=== PATIENT | female | born 1980 | race Two or more races ===

== ENCOUNTER 2022-09-20 14:34 | Outpatient (REF) | payer OTHER, SELFPAY ==
--- NOTE | ~2022-09-20 | XR_ITS ---
EXAMINATION: XR SHOULDER, LEFT CLINICAL INFORMATION: Left shoulder pain COMPARISON: None TECHNIQUE: AP external rotation, Grashey, scapular Y, and axillary views of the left shoulder. FINDINGS: The bones and soft tissues are normal. No fracture. Glenohumeral and acromioclavicular alignment is anatomic with normal joint space. No abnormal soft tissue calcifications. XR/XR shoulder LT min 2V IMPRESSION: Normal left shoulder.
== END 2022-09-20 14:35 | disposition home or self-care (01) ==
LOC: HO.XRAY 14:34
PROVIDERS: PCP Internal Medicine; Visit Provider Internal Medicine
DX: M25.512 Pain in left shoulder (principal)
CPT/HCPCS: 73030

== ENCOUNTER 2022-11-24 17:00 | Outpatient (RCR) | payer OTHER, SELFPAY ==
--- NOTE | 2022-10-28 13:26 | MHC.PT.EP ---
[facility] [place] [facility] [place] [facility] [place] Office [address] John Barboza [address] [phone] F: [phone] F: [phone] F: [phone] F: [phone] Physical Therapy Plan of Care Date of Evaluation: Date of Surgery: N/A Diagnosis: Pain in left shoulder Assessment: Pt is a pleasant 41yo F who presents to PT with L shoulder pain. Her pain radiates intermittently into L UE. She presents to PT with current impairments in pain, decreased L shoulder ROM, decreased cervical ROM, soft tissue restrictions, decreased strength, and impaired posture. She is limited functionally by bending, prolonged sitting, lifting, overhead ADLs, reaching behind back, and pulling up her pants. She is an excellent candidate for skilled PT in order to address current impairments to facilitate return to PLOF. She is recommended to be seen 2x/week for 4 weeks and will be reassessed at that time. Frequency and Duration: The patient will be seen 2x/week for 4 weeks Short Term Goals: Pt will be I with HEP to promote self management of symptoms Pt will have centralization of symptoms Range Ecologist Goals: Pt will tolerate prolonged sitting > 30 min with proper posture and minimal to no discomfort Pt will perform overhead ADLs without compensation with minimal to no discomfort Pt will demonstrate improvements in function as evidenced by statistically significant improvement in SPADI outcome measure Treatment Plan: Modalities to reduce pain, spasms and effusion. Manual therapy to restore motion and function. Therapeutic exercise to improve strength and flexibility. Neuromuscular re-education for posture and balance. Therapeutic activities to return to functional activities of daily living. Electronically signed by: Krystal Bullock, PT, DPT Please sign and return to therapist. Thank you for your referral.
--- NOTE | 2023-01-03 14:55 | MHC.PT.DC ---
[facility] [place] Office [place] Office [place] Office [address] John Barboza [address] [phone] F: [phone] F: [phone] F: [phone] F: [phone] Physical Therapy Discharge Report Diagnosis: Pain in left shoulder Date of Surgery: N/A Date of Evaluation: 10/27/22 Date of Discharge: 01/03/23 Treatments to Date: 3 Cancellations to Date: 4 No Shows to Date: Discharge Status: Visit Non-compliance Discharge Summary: Pt was seen for PT from 10/27/22-11/24/22. Her last attended appointment was 11/24/22. Pt is being D/C from skilled PT as she has had many cancellations and has not attended PT in > 30 days. Pt current level of function unknown at this time. Electronically signed by: Krystal Bullock, PT, DPT Please sign and return to therapist. Thank you for your referral.
== END 2023-01-03 14:56 | disposition home or self-care (01) ==
LOC: HO.PT 17:00
PROVIDERS: PCP Internal Medicine; Visit Provider Internal Medicine
DX: M25.512 Pain in left shoulder (principal)
CPT/HCPCS: 97110; 97140; 97162

== ENCOUNTER 2022-12-07 15:52 | Outpatient (REF) | payer OTHER, SELFPAY ==
--- NOTE | ~2022-12-07 | MM_ITS ---
EXAMINATION: MM SCREENING DIGITAL BREAST TOMOSYNTHESIS, BILATERAL CLINICAL INFORMATION: Screening. Asymptomatic. The lifetime risk of breast cancer based on the Tyrer-Cuzick Model is 10.4%. COMPARISON: Mammography: December 06, 2012 and November 28, 2012 TECHNIQUE: Digital breast tomosynthesis is performed in both the craniocaudal and mediolateral oblique views along with computer-aided detection (CAD). Synthesized 2D images are generated from the tomosynthesis. FINDINGS: The breasts are extremely dense, which lowers the sensitivity of mammography (ACR BI-RADS breast composition Category d). There are no significant masses, abnormal calcifications, or other abnormalities. MM/MM tomosynthesis screening BI IMPRESSION: No significant changes ASSESSMENT: BI-RADS 1: Negative RECOMMENDATION: Routine annual mammography screening. This patient's information was entered into a reminder system with a target due date for their next mammogram.
== END 2022-12-07 15:53 | disposition home or self-care (01) ==
LOC: HO.MAMMO 15:52
PROVIDERS: PCP Internal Medicine; Visit Provider Internal Medicine
DX: Z12.31 Encounter for screening mammogram for malignant neoplasm of breast (principal)
CPT/HCPCS: 77063; 77067

== ENCOUNTER 2024-01-02 09:47 | Outpatient (AMB) | payer OTHER, SELFPAY ==
[2024-01-02 09:53] VITALS: BP 110/70; PULSE 73; TEMP 36.3; O2SAT 98; BMI 30.7
--- NOTE | 2024-01-02 09:53 | MHC.OFFWIV ---
Intake Vital Signs 01/02/24 09:53 Height 5 ft 4 in Weight 179 lb BMI 30.7 BP 110/70 Blood Pressure Location Lt brachial Position Sitting Pulse 73 Pulse Source Pulse Oximeter Temp 97.4 F Temp Source Temporal Artery Scan Pulse Oximetry (%) 98 Oxygen Delivery Method Room Air Intake Visit Reasons: EST/ congestion trouble breathing (lobby) Intake Note: pt is here today for congestion trouble breathing started 1 week ago Patient Tobacco Use Status: Current everyday Tobacco user Allergies No Known Allergies Allergy (Verified 01/02/24 10:15) Medication List - Last Reconciled 01/02/24 by EDUARDO Moralez acetaminophen (Tylenol Extra Strength) 1,000 mg PO Q6H PRN hydroxyzine HCl 25 mg PO TID PRN ibuprofen 800 mg PO Q6H nicotine (Nicoderm CQ) 1 patch transdermal DAILY Do you need a note to return to daycare/school/sports/work: Yes HPI HPI Comments History of Present Illness Details Patient is a 43-year-old female in today for sick visit. Reports sore throat, headache, cough, chest tightness times 10 days. Patient states to people at work have COVID. His utilize pobe-ozc-asbjqoa medicine with little effect. Denies chest pain, shortness a breath, nausea, vomiting, diarrhea PFSH Family History Paternal Uncle Liver cancer Father Substance abuse Social History (Updated 09/20/22 @ 14:09 by Rosalva Garcia MD) Housing: Apartment Alcohol intake: current Patient Tobacco Use Status: Current everyday Tobacco user Tobacco use type: Cigarette Cigarettes Per Day: 10 Years Smoked: 4 a day e-Cigarette/Vaping Use: Never Used Second Hand Smoke Exposure: Yes service: No Current occupational status: employed Current occupational exposures/hazards: No Cognitive needs: No Hearing needs: No Vision needs: No Review of Systems Const All systems reviewed & are unremarkable except as noted in HPI and below Physical Exam Vital Signs: Last Vital Signs Temp 97.4 F 01/02/24 09:53 Pulse 73 01/02/24 09:53 BP 110/70 01/02/24 09:53 Pulse Ox 98 01/02/24 09:53 Oxygen Delivery Method Room Air 01/02/24 09:53 BMI result Body Mass Index 30.7 Const Other: Appearance: Alert.? Oriented X3.? No acute distress.? Head: Normocephalic, Eyes: Pupils equal, round and reactive to light.?Sclera white/ ENT: Pharynx erythema. Tonsils +2. Right TM intact and pearly reyna. Left TM erythema with effusion. Neck: Normal inspection.? Neck supple.? CVS: Normal heart rate and rhythm.? Pulses normal.? Respiratory: No respiratory distress.? Breath sounds normal.? Neuro: Oriented X 3.? No motor deficit.? No sensory deficit. CN 2-12 intact Office Procedures Nebulizer Treatment Nebulizer Treatment 92159-Efubscilv/MDI RX initial, or Nebulizer Subsequent Treatment Office Meds ipratropium 0.5 mg-albuterol 3 mg (2.5 mg base)/3 mL nebulization soln Performing Provider: EDUARDO Moralez Performing Location: [facility] Administered by: EDUARDO Moralez on 01/02/24 10:17 Dose Route Admin Location Dispensed Lot Number Expiration Date [facility] [employer] 3 mL inhalation 3 mL [id number] 09/14/25 80180-505-06 tenfarms Assessment & Plan Assessment & Plan (1) Left otitis media: Comment: Will give patient Augmentin. Will also give patient prednisone for chest tightness. Patient has been educated the side effects of these medications Code(s): H66.92 - Otitis media, unspecified, left ear Qualifiers: Otitis media type: unspecified Qualified Code(s): H66.92 - Otitis media, unspecified, left ear Plan: Take your medications as prescribed. If you were prescribed antibiotics today, it is important that you take your medication to their entirety, do not skip any doses, do not finish them early. Follow-up with your primary care provider this week. Return to the emergency department with new or worsening symptoms. Such as fevers, chills, chest pain, shortness of breath, nausea, vomiting, dizziness, headache, vision changes, lethargy In case of emergency call 911 Plan Follow up with PCP. Orders: Orders SARS-CoV2/FLU/RSV Today J06.9 - Acute upper respiratory infection, unspecified AMB Nebulizer Treatment Today R07.89 - Other chest pain Medications: New amoxicillin-pot clavulanate 875-125 mg 1 tab PO Q12H 14 tabs 0RF prednisone 20 mg PO BID 10 tabs 0RF Coding Level of Care Code Est Pt Level 3 (41723) Diagnoses Left otitis media, unspecified otitis media type H66.92 Otitis media type: unspecified CPT Codes Nebulizer Treatment - Nebulizer Treatment, initial or subsequent: [id number]-Pbtdahpth/MDI RX initial, or Nebulizer Subsequent Treatment ([id number]) Time Spent (min) 28
== END 2024-01-02 10:43 | disposition home or self-care (01) ==
PROVIDERS: PCP Internal Medicine; Visit Provider Nurse Practitioner Primary Care
DX: H66.92 Otitis media, unspecified, left ear (principal); R07.89 Other chest pain
CPT/HCPCS: 94640; 99213; J7620

== ENCOUNTER 2024-01-02 13:21 | Outpatient (REF) | payer OTHER, SELFPAY ==
[2024-01-02 14:25] LABS: Influenza A PCR NEGATIVE (Negative); Influenza B PCR NEGATIVE (Negative); Resp Syncy Virus RNA Qual PCR NEGATIVE (Negative); SARS COV2 PCR INHOUSE NEGATIVE (Negative)
== END 2024-01-02 13:22 | disposition home or self-care (01) ==
LOC: HO.LNP 13:21
PROVIDERS: Visit Provider Nurse Practitioner Primary Care
DX: J06.9 Acute upper respiratory infection, unspecified (principal)
CPT/HCPCS: 0241U

== ENCOUNTER 2024-01-13 09:21 | Outpatient (REF) | payer OTHER, SELFPAY ==
[2024-01-13 11:29] LABS: MANUAL DIFF FLAG NO
[2024-01-13 11:50] LABS: Basophils Absolute Auto 0.1 X10*3/uL (0.0-0.2); Basophils Percent Auto 0.6 % (0-2); Eosinophils Absolute Auto 0.1 X10*3/uL (0.0-0.4); Eosinophils Percent Auto 0.8 % (0-4); Hematocrit 40.8 % (37.0-47.0); Hemoglobin 13.5 g/dl (12.0-16.0); Imm Gran Abs Auto 0.03 X10*3/uL (0.00-0.03); Imm Gran Pct Auto 0.3 % (0.0-0.4); Lymphocytes Absolute Auto 3.8 X10*3/uL (1.2-4.9); Lymphocytes Percent Auto 36.6 % (20-40); Mean Corpuscular HGB Conc 33.1 g/dl (31.0-35.0); Mean Corpuscular Hemoglobin 31.7 pg (27.0-33.0); Mean Corpuscular Volume 95.8 fL (80.0-98.0); Mean Platelet Volume 11.1 fL (9.4-12.3); Monocytes Percent Auto 9.2 % (2-11); Neutrophils Absolute Auto 5.4 x10*3/uL (2.0-8.3); Neutrophils Percent Auto 52.5 % (45-73); Platelet Count 320 X10*3/uL (160-400); Red Blood Count 4.26 X10*6/uL (4.20-5.50); Red Cell Distribution Width 13.6 % (11.0-16.0); White Blood Count 10.3 X10*3/uL (4.8-10.8)
[2024-01-13 12:35] LABS: Alanine Aminotransferase 12 U/L (0-31); Alkaline Phosphatase 54 U/L (39-117); Anion Gap 14 (12-20); Aspartate Amino Transferase 12 U/L (5-31); Bilirubin Total 0.9 mg/dL (0.0-1.0); Blood Urea Nitrogen 16 mg/dL (9-16); Calcium 9.3 mg/dL (8.4-10.2); Carbon Dioxide 26 mmol/L (22-29); Chloride 104 mmol/L (96-108); Cholesterol 200 mg/dL (<200); Estimated Glomerular Filt Rate > 60; Free T4 (Free Thyroxine) 0.99 ng/dL (0.71-1.85); Glucose Random 88 mg/dL (60-115); HDL Cholesterol 62 mg/dL (>40); LDL Cholesterol Calculated 124 mg/dL (<100); Potassium 3.1 mmol/L (3.3-5.1); Sodium 141 mmol/L (135-145); Thyroid Stimulating Hormone 0.97 uIU/mL (0.32-4.0); Total Protein 6.7 g/dL (6.5-8.0); Triglycerides 74 mg/dL (<150); Vitamin D 25-OH Total 20.8 ng/mL (>30)
[2024-01-13 12:45] LABS: Folate 5.8 ng/mL (> or = 4.0); Vitamin B12 302 pg/mL (200-900)
== END 2024-01-13 09:22 | disposition home or self-care (01) ==
LOC: HO.HMGCLDS 09:21
PROVIDERS: PCP Internal Medicine; Visit Provider Internal Medicine
DX: F41.1 Generalized anxiety disorder (principal); E78.00 Pure hypercholesterolemia, unspecified
CPT/HCPCS: 36415; 80053; 80061; 82306; 82607; 82746; 84439; 84443; 85025

== ENCOUNTER 2024-02-21 14:12 | Outpatient (AMB) | payer OTHER, SELFPAY ==
[2024-02-21 14:15] VITALS: BP 136/88; PULSE 70; O2SAT 99; BMI 30.2
--- NOTE | 2024-02-21 14:15 | A.OFFPC_ITS ---
Vital Signs 02/21/24 14:15 Height 5 ft 4 in Weight 176 lb BMI 30.2 BP 136/88 Blood Pressure Location Lt brachial Position Sitting Pulse 70 Pulse Source Pulse Oximeter Pulse Oximetry (%) 99 Oxygen Delivery Method Room Air Intake Visit Reasons: Follow Up Supervisor Dried Yeast: Not Required per policy Accompanied by: Self / Same As Patient Allergies No Known Allergies Allergy (Verified 02/21/24 14:16) Medication List - Last Reconciled 02/21/24 by Rosalva Garcia MD acetaminophen (Tylenol Extra Strength) 1,000 mg PO Q6H PRN hydroxyzine HCl 25 mg PO TID PRN ibuprofen 800 mg PO Q6H Tobacco use date assessed: 02/21/24 Dental Screening Dental Screen Date: 02/21/24 Did you have a dental visit in the last 12 months?: Yes Did you have a dental problem in the last 6 months where you did not have access to dental care?: No Was dental information given to patient?: Patient has dentist HPI Follow Up HPI Details 43-year-old obese female smoker with gen eralized anxiety disorder last seen in 10/03/2022 has been advised to get Pap smear and mammogram and blood work. Noted to have had blood work done in 09/02/2023 noted to have hypokalemia and low vitamin-D. going back to school and having difficulty with focus PFSH Family History (Updated 02/21/24 @ 14:30 by Rosalva Garcia MD) Paternal Uncle Liver cancer Father Substance abuse Maternal Uncle Myocardial infarct Social History (Updated 02/21/24 @ 14:32 by Rosalva Garcia MD) Housing: Apartment Alcohol intake: current Comment: 2 days weekend 6 beers Patient Tobacco Use Status: Current everyday Tobacco user Tobacco use type: Cigarette Cigarettes Per Day: 5 Years Smoked: e-Cigarette/Vaping Use: Never Used Second Hand Smoke Exposure: Yes service: No Current occupational status: employed Current occupational exposures/hazards: No Cognitive needs: No Hearing needs: No Vision needs: No Questionnaire PHQ-9 Over the last 2 weeks, how often have you been bothered by any of the following problems? 1. Little interest or pleasure in doing things: not at all 2. Feeling down, depressed, or hopeless: not at all 3. Trouble falling or staying asleep, or sleeping too much: not at all 4. Feeling tired or having little energy: not at all 5. Poor appetite or overeating: not at all 6. Feeling bad about yourself - or that you are a failure or have let yourself or your family down: not at all 7. Trouble concentrating on things, such as reading the newspaper or watching television: not at all 8. Moving or speaking so slowly that other people could have noticed. Or the opposite - being so fidgety or restless that you have been moving around a lot more than usual: not at all 9. Thoughts that you would be better off or of hurting yourself in some way: not at all Total score: 0 Depression Screening Interpretation: Negative Depression Screening Done: Yes Source: Developed by Drs. Fransisco Rich, Tiny Delacruz, Chung Dykes and colleagues, with an educational chasity from [employer]. Thrive Questionnaire Date Thrive assessed: 02/21/24 I am a: Patient What is your living situation today?: I have a steady place to live Within the past 12 months, did the food you bought not last and you didn't have the money to get more?: Never true Within the past 12 months, did you worry whether your food would run out before you got money to buy more?: Never true Do you have trouble paying for medicines?: No Do you have trouble getting transportation to medical appointments?: No Do you have trouble paying your heating and electricity bill?: No Do you have trouble taking care of your child, family member or friend?: No Do you have trouble with day-to-day activities such as bathing, preparing meals, shopping, managing finances, etc.?: No Are you currently unemployed and looking for a job?: No Are you interested in more education?: No Please select the resources that you would like help with: None THRIVE Score: 0 AUDIT C Alcohol Use Questionnaire (AUDIT-C) 1. How often do you have a drink containing alcohol?: 2-4 times a month 2. How many drinks containing alcohol do you have on a typical day when you are drinking?: 5 or 6 3. How often do you have six or more drinks on one occasion?: Never Total Score: 4 Score Reviewed/Action Taken: Yes (reviewed and discussed ) GIL-7 AMB Questionnaire GIL-7 Date GIL - 7 assessed: 02/21/24 Feeling nervous, anxious, or on edge: 2 = More than half the days Not being able to stop or control worryin = Several days Worrying too much about different things: 2 = More than half the days Trouble relaxin = More than half the days Being so restless that it is hard to sit still: 2 = More than half the days Becoming easily annoyed or irritable: 0 = Not at all Feeling afraid as if something awful might happen: 0 = Not at all Total GIL-7 score (0-4 normal; 5-9 mild; 10-14 moderate; 15-21 severe): 9 Source: Developed by Drs. Fransisco Rich, Tiny Delacruz, Chung Dykes and colleagues, with an educational chasity from [employer]. Physical exam (Primary Care) Vital Signs: Last Vital Signs Pulse 70 02/21/24 14:15 BP 136/88 02/21/24 14:15 Pulse Ox 99 02/21/24 14:15 Oxygen Delivery Method Room Air 02/21/24 14:15 BMI result Body Mass Index 30.2 Tobacco/Smoking Status: Tobacco use Status Tobacco use date assessed 02/21/24 02/21/24 14:17 Patient Tobacco Use Status Current everyday Tobacco 02/21/24 14:17 Tobacco use type Cigarette 02/21/24 14:17 e-Cigarette/Vaping Use Never Used 02/21/24 14:17 PHQ-9: PHQ-9 Score PHQ-9: Total score 0 02/21/24 14:17 Depression Screening Interpretation: Negative Thrive Assessment: Date of Thrive Assessment Date Thrive assessed 02/21/24 02/21/24 14:17 Const General: alert; No acute distress Eyes Conjunctivae: conjunctivae normal Resp Auscultation: clear to auscultation bilaterally Cardio Rate: regular rate Rhythm: regular rhythm GI Inspection: Yes normal to inspection Extrem General: Yes normal to inspection and No edema Assessment and Plan Assessment & Plan (1) Breast cancer screening by mammogram: Code(s): Z12.31 - Encounter for screening mammogram for malignant neoplasm of breast Plan: Reminded patient about mammogram (2) Nicotine dependence: Code(s): F17.200 - Nicotine dependence, unspecified, uncomplicated Qualifiers: Nicotine product type: cigarettes Substance use status: uncomplicated Qualified Code(s): F17.210 - Nicotine dependence, cigarettes, uncomplicated Plan: Patient is strongly advised to stop smoking! (3) Generalized anxiety disorder: Comment: Declined referral for counseling Code(s): F41.1 - Generalized anxiety disorder Plan: Presently on hydroxyzine (4) Hypokalemia: Code(s): E87.6 - Hypokalemia Plan: Discussed about replacement potassium (5) Vitamin D deficiency: Code(s): E55.9 - Vitamin D deficiency, unspecified Plan: Discussion about vitamin-D 8451-6249 units once a day (6) Tobacco abuse: Code(s): Z72.0 - Tobacco use Plan: Patient is ready stop and would like the patches (7) Cough: Code(s): R05.9 - Cough, unspecified Plan: Most likely from the smoking but we will work this up allergy medication sent in chest x-ray requested pulmonary function test requested (8) Inattention: Code(s): R41.840 - Attention and concentration deficit Plan: referral for counselling and testing Orders: Orders XR chest 2V Today R05.9 - Cough, unspecified PFT pulmonary function test Today R05.9 - Cough, unspecified Comprehensive Met. Panel Today E87.6 - Hypokalemia Referrals Psychiatry Outpatient Consultation Service R41.840 - Attention and concentration deficit Medications: New nicotine 1 patch transdermal DAILY 28 ea 0RF Z72.0 - Tobacco use nicotine 1 patch transdermal Q24H 28 ea 1RF Z72.0 - Tobacco use nicotine (polacrilex) 2 mg buccal Q8H PRN 108 ea 0RF nicotine cravings Z72.0 - Tobacco use fexofenadine (Senait Allergy) 180 mg PO DAILY 30 tabs 1RF R05.9 - Cough, unspecified Coding Level of Care Code Est Pt Level 4 (95466) Diagnoses Breast cancer screening by mammogram Z12.31 Cigarette nicotine dependence without complication F17.210 Nicotine product type: cigarettes Substance use status: uncomplicated Generalized anxiety disorder F41.1 Hypokalemia E87.6 Vitamin D deficiency E55.9 Tobacco abuse Z72.0 Cough R05.9 Inattention R41.840 Additional Codes PHQ-9 - 72597 - PHQ-9 Billing: ([id number])
== END 2024-02-21 14:48 | disposition home or self-care (01) ==
PROVIDERS: PCP Internal Medicine; Visit Provider Internal Medicine
DX: E87.6 Hypokalemia (principal); Z12.31 Encounter for screening mammogram for malignant neoplasm of breast; F17.210 Nicotine dependence, cigarettes, uncomplicated; F41.1 Generalized anxiety disorder; E55.9 Vitamin D deficiency, unspecified; Z72.0 Tobacco use; R05.9 Cough, unspecified; R41.840 Attention and concentration deficit
CPT/HCPCS: 99214

== ENCOUNTER 2024-03-04 15:53 | Outpatient (AMB) | payer SELFPAY ==
--- NOTE | 2024-03-04 16:11 | A.OFFPSYCH_ITS ---
Intake Intake Visit Reasons: consultation Electrophysiology Technician Required: No Allergies No Known Allergies Allergy (Verified 02/21/24 14:16) Medication List - Last Reconciled 03/04/24 by Jazzy Patel APRN fexofenadine (Senait Allergy) 180 mg PO DAILY hydroxyzine HCl 25 mg PO TID PRN nicotine 1 patch transdermal DAILY nicotine 1 patch transdermal Q24H nicotine (polacrilex) 2 mg buccal Q8H PRN HPI- Psychiatric Chief Complaint: consultation HPI Narrative: pt here for evaluation of possible ADHD; she presents with sadness and mild depression as well as anxiety; she reports she has never really gotten over her father's ; several of her uncles have recently and this has made her grief from losing her father in 2003 feel more acute; 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 she says she would never have graduated from if her sister didn't help her. No SI no HI. Patient endorses trouble sitting still, feeling fidgety frequently distracted has trouble getting things organized. She often delays getting started when tasks require lot of thought she has trouble keeping attention when doing boring or repetitive work. She has difficulty concentrating on what other people say she has easy distracted by external noise or activity. She often has trouble sitting still she feels driven by a motor and is compelled to get up and do things around the house or while at work she describes herself as talking constantly her sister has told her that she is too loud makes too much noise and talks too much. She will often interrupt others. She has difficulty settling down at night and has trouble with sleep initiation she also says that she can speak impulsively at times. Past Psychiatric History: no IPLOC Subjective Subjective Subjective Medication Compliance: Yes Side effects from medications: No Review of Systems Medical Review of Systems: unchanged Mental Status Exam Mental Status Exam Patient Appearance: Well Grooomed and Appropriate Patient Orientation: Person, Place, Time and Situation Level of Consciousness: Awake Patient Behavior: Appropriate, Restless and Distractible Mood Description: Anxious and Sad Affect Description: Anxious and Sad Ability to Follow Directions: Good Speech Pattern: Clear and Coherent Memory Description: Intact Hallucinations: None Delusions: Not Present Thought Process: Intact Thought Content: positive for Intact Judgement: Good Assessment and Plan Assessment & Plan (1) ADHD (attention deficit hyperactivity disorder), combined type: Status: Acute Code(s): F90.2 - Attention-deficit hyperactivity disorder, combined type (2) Dysthymia: Status: Acute Code(s): F34.1 - Dysthymic disorder (3) Anxiety: Status: Acute Code(s): F41.9 - Anxiety disorder, unspecified Plan trial of wellbutrin SR 100mg daily x 10 days then increase to one in am and one at lunch. return in 3 weeks Medications: New bupropion HCl SR (Wellbutrin SR) 100 mg orally take one tablet every morning for ten days then take one in morning and one at lunch time daily; 60 tabs 0RF Counseling and coordination of Care Pt. Self Management counseling: Mod caffeine/ETOH intake, Sleep hygiene, Behavior activation and General coping skills Medication management counseling: Effectiveness, Side effects, Dosing range, Duration, Drug interaction and Adherence Diagnosis and Prognosis Counseling: Accuracy of diagnosis, Prognosis over time, Impact of diagnosis on life functions, Impact of family relationship, Problematic behaviors secondary to diagnosis and Adequacy of current interventions Details: I spent 60 minutes reviewing the record, seeing the patient and documenting in the medical record. Counseling provided to the patient/caregiver as outlined below. Addressed patient/caregiver concerns regarding current medication regime including effective adherence. Addressed patient/caregiver concerns regarding diagnosis and prognosis including accuracy of diagnosis, prognosis over time, impact of diagnosis. Addressed patient/caregiver concerns regarding impact of recent stressors. [facility] Family History (Updated 02/21/24 @ 14:30 by Rosalva Garcia MD) Paternal Uncle Liver cancer Father Substance abuse Maternal Uncle Myocardial infarct Social History (Updated 02/21/24 @ 14:32 by Rosalva Garcia MD) Housing: Apartment Alcohol intake: current Comment: 2 days weekend 6 beers Patient Tobacco Use Status: Current everyday Tobacco user Tobacco use type: Cigarette Cigarettes Per Day: 5 Years Smoked: e-Cigarette/Vaping Use: Never Used Second Hand Smoke Exposure: Yes service: No Current occupational status: employed Current occupational exposures/hazards: No Cognitive needs: No Hearing needs: No Vision needs: No Social History: lives alone with 17 yo son Substance History: none Trauma History: none Coding Level of Care Code Psych Diag Eval w/Med (25743) Diagnoses ADHD (attention deficit hyperactivity disorder), combined type F90.2 Dysthymia F34.1 Anxiety F41.9
== END 2024-03-04 16:48 | disposition home or self-care (01) ==
LOC: HO.HOP 15:53
PROVIDERS: PCP Internal Medicine; Visit Provider Clinical Nurse Specialist Psychiatric/Mental Health
DX: F90.2 Attention-deficit hyperactivity disorder, combined type (principal); F34.1 Dysthymic disorder; F41.9 Anxiety disorder, unspecified
CPT/HCPCS: 90792

== ENCOUNTER → 2024-03-04 15:53 | Outpatient (BNVA) | payer SELFPAY | PROVIDERS: PCP Internal Medicine; Visit Provider Clinical Nurse Specialist Psychiatric/Mental Health | DX: F90.2 Attention-deficit hyperactivity disorder, combined type (principal); F34.1 Dysthymic disorder; F41.9 Anxiety disorder, unspecified | CPT/HCPCS: 90792 ==

== ENCOUNTER 2024-03-15 15:59 | Outpatient (AMB) | payer OTHER, SELFPAY ==
--- NOTE | 2024-03-15 16:03 | A.OFFPSYCH_ITS ---
Intake Intake Visit Reasons: f/u consultation Allergies No Known Allergies Allergy (Verified 02/21/24 14:16) Medication List - Last Reconciled 03/15/24 by Jazzy Patel APRN fexofenadine (Senait Allergy) 180 mg PO DAILY hydroxyzine HCl 25 mg PO TID PRN nicotine 1 patch transdermal DAILY nicotine 1 patch transdermal Q24H nicotine (polacrilex) 2 mg buccal Q8H PRN HPI- Psychiatric Chief Complaint: f/u consultation HPI Narrative: pt reports restlessness and stomach ache from wellbutrin; she describes akathesia from it. she stopped it and it went away; we discussed options for the ADHD; no other changes. Past Psychiatric History: no IPLOC Subjective Subjective Subjective Medication Compliance: Yes Side effects from medications: Yes Review of Systems Medical Review of Systems: unchanged Mental Status Exam Mental Status Exam Patient Appearance: Well Grooomed and Appropriate Patient Orientation: Person, Place, Time and Situation Level of Consciousness: Awake Patient Behavior: Appropriate and Cooperative Mood Description: Appropriate and Anxious Affect Description: Appropriate and Anxious Patient Cognition Impaired: No Ability to Follow Directions: Good Speech Pattern: Clear, Appropriate and Coherent Memory Description: Intact Hallucinations: None Delusions: Not Present Thought Process: Goal Oriented Thought Content: positive for Intact and positive for Goal Oriented Judgement: Good Assessment and Plan Assessment & Plan (1) ADHD (attention deficit hyperactivity disorder), combined type: Status: Acute Code(s): F90.2 - Attention-deficit hyperactivity disorder, combined type Plan trial of adderall IR 10mg bid; will switch to ER if tolerates advised re; decreased appetite and making sure she eats on regular schedule stay hydrated return in 3 weeks Medications: New dextroamphetamine-amphetamine 10 mg (Adderall) administer doses at least 4 hours apart; Partial Fill upon patient request. 10 mg PO BID 60 tabs 0RF Counseling and coordination of Care Pt. Self Management counseling: Maintenance-social rhythm, Mod caffeine/ETOH int krys, Nutrition education and improvement and Sleep hygiene Medication management counseling: Effectiveness, Side effects, Dosing range, Duration, Drug interaction and Adherence Diagnosis and Prognosis Counseling: Accuracy of diagnosis, Prognosis over time, Impact of diagnosis on life functions and Adequacy of current interventions Details: I spent 25 minutes reviewing the record, seeing the patient and documenting in the medical record. Counseling provided to the patient/caregiver as outlined below. Addressed patient/caregiver concerns regarding current medication regime including effective adherence. Addressed patient/caregiver concerns regarding diagnosis and prognosis including accuracy of diagnosis, prognosis over time, impact of diagnosis. Addressed patient/caregiver concerns regarding impact of recent stressors. PFSH Family History (Updated 02/21/24 @ 14:30 by Rosalva Garcia MD) Paternal Uncle Liver cancer Father Substance abuse Maternal Uncle Myocardial infarct Social History (Updated 02/21/24 @ 14:32 by Rosalva Garcia MD) Housing: Apartment Alcohol intake: current Comment: 2 days weekend 6 beers Patient Tobacco Use Status: Current everyday Tobacco user Tobacco use type: Cigarette Cigarettes Per Day: 5 Years Smoked: e-Cigarette/Vaping Use: Never Used Second Hand Smoke Exposure: Yes service: No Current occupational status: employed Current occupational exposures/hazards: No Cognitive needs: No Hearing needs: No Vision needs: No Social History: lives alone with 17 yo son Substance History: none Trauma History: none Coding Level of Care Code Est Pt Level 4 (30073) Diagnoses ADHD (attention deficit hyperactivity disorder), combined type F90.2
== END 2024-03-15 17:55 | disposition home or self-care (01) ==
LOC: HO.HOP 15:59
PROVIDERS: PCP Internal Medicine; Visit Provider Clinical Nurse Specialist Psychiatric/Mental Health
DX: F90.2 Attention-deficit hyperactivity disorder, combined type (principal)
CPT/HCPCS: 99214

== ENCOUNTER → 2024-03-15 15:59 | Outpatient (BNVA) | payer SELFPAY | PROVIDERS: PCP Internal Medicine; Visit Provider Clinical Nurse Specialist Psychiatric/Mental Health | DX: F90.2 Attention-deficit hyperactivity disorder, combined type (principal) | CPT/HCPCS: 99212 ==

== ENCOUNTER 2024-05-03 16:03 | Outpatient (AMB) | payer OTHER, SELFPAY ==
--- NOTE | 2024-05-03 16:08 | A.OFFPSYCH_ITS ---
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 Allergies No Known Allergies Allergy (Verified 02/21/24 14:16) Medication List - Last Reconciled 05/03/24 by Jazzy Patel APRN dextroamphetamine-amphetamine 10 mg (Adderall) 10 mg PO BID fexofenadine (Senait Allergy) 180 mg PO DAILY hydroxyzine HCl 25 mg PO TID PRN nicotine 1 patch transdermal DAILY nicotine 1 patch transdermal Q24H nicotine (polacrilex) 2 mg buccal Q8H PRN HPI- Psychiatric Chief Complaint: f/u consultation HPI Narrative: pt reports improved ADHD sympotms; better focus, better attention, making fewwer mistakes, able to saty on task; functioning better especially at work; no side effects; eating well and sleeping well; she reports her mood is better but still sometimes feels low energy and low motivation. feels bad about herslef and like a failure sometimes. she worries every day; she feelt tense and anxious but she says no more than before the adderall. PHQ9 was 16 upon admission and is now 12. GAD7 was 16 upon admission and now is 11. She also reports that the second dose of adderall wears off around 4 pm and its hard to finish her day and then get things done at homesuch as cooking and helping her son. We discussed adding 5 mg of adderall IR at 4pm daily and also trial of zoloft 25mg at dinner time for mood and anxiety. she is agreeable. Past Psychiatric History: no IPLOC Subjective Subjective Subjective Medication Compliance: Yes Side effects from medications: No Review of Systems Medical Review of Systems: unchanged Mental Status Exam Mental Status Exam Patient Appearance: Well Grooomed and Appropriate Patient Orientation: Person, Place, Time and Situation Level of Consciousness: Awake and Appropriate Patient Behavior: Appropriate and Cooperative Mood Description: Flat and Sad Affect Description: Flat Patient Cognition Impaired: No Ability to Follow Directions: Good Speech Pattern: Clear Memory Description: Intact Hallucinations: None Delusions: Not Present Thought Process: Intact and Goal Oriented Thought Content: positive for Intact and positive for Goal Oriented Judgement: Good Assessment and Plan Assessment & Plan (1) Anxiety: Status: Acute Code(s): F41.9 - Anxiety disorder, unspecified (2) Dysthymia: Status: Acute Code(s): F34.1 - Dysthymic disorder (3) ADHD (attention deficit hyperactivity disorder), combined type: Status: Acute Code(s): F90.2 - Attention-deficit hyperactivity disorder, combined type Plan add zoloft 25 mg daily at 5pm continue adderall 10mg bid and start 5mg at 4pm there is a manufacturing shortage of adderall XR currently so once shortage end can consider changing to long acting adderall. Medications: New sertraline (Zoloft) 25 mg PO DAILY 30 tabs 2RF dextroamphetamine-amphetamine 5 mg (Adderall) 5 mg orally take daily 4 pm; Partial Fill upon patient request. 30 tabs 0RF sertraline (Zoloft) 25 mg PO DAILY 30 tabs 2RF dextroamphetamine-amphetamine 5 mg (Adderall) 5 mg orally take daily 4 pm; Partial Fill upon patient request. 30 tabs 0RF dextroamphetamine-amphetamine 5 mg (Adderall) 5 mg orally take daily 4 pm; Partial Fill upon patient request. 30 tabs 0RF sertraline (Zoloft) 25 mg PO DAILY 30 tabs 2RF Refilled dextroamphetamine-amphetamine 10 mg (Adderall) administer doses at least 4 hours apart; Partial Fill upon patient request. 10 mg PO BID 60 tabs 0RF dextroamphetamine-amphetamine 10 mg (Adderall) administer doses at least 4 hours apart; Partial Fill upon patient request. 10 mg PO BID 60 tabs 0RF dextroamphetamine-amphetamine 10 mg (Adderall) administer doses at least 4 hours apart; Partial Fill upon patient request. 10 mg PO BID 60 tabs 0RF Counseling and coordination of Care Pt. Self Management counseling: Mod caffeine/ETOH intake, Nutrition education and improvement, Sleep hygiene and General coping skills Medication management counseling: Effectiveness, Side effects, Dosing range, Duration, Drug interaction and Adherence Diagnosis and Prognosis Counseling: Accuracy of diagnosis, Prognosis over time, Impact of diagnosis on life functions, Impact of family relationship, Problematic behaviors secondary to diagnosis and Adequacy of current interventions Details: I spent 30 minutes reviewing the record, seeing the patient and documenting in the medical record. Counseling provided to the patient/caregiver as outlined below. Addressed patient/caregiver concerns regarding current medication regime including effective adherence. Addressed patient/caregiver concerns regarding diagnosis and prognosis including accuracy of diagnosis, prognosis over time, impact of diagnosis. Addressed patient/caregiver concerns regarding impact of recent stressors. [facility] Family History (Updated 02/21/24 @ 14:30 by Rosalva Garcia MD) Paternal Uncle Liver cancer Father Substance abuse Maternal Uncle Myocardial infarct Social History (Updated 02/21/24 @ 14:32 by Rosalva Garcia MD) Housing: Apartment Alcohol intake: current Comment: 2 days weekend 6 beers Patient Tobacco Use Status: Current everyday Tobacco user Tobacco use type: Cigarette Cigarettes Per Day: 5 Years Smoked: e-Cigarette/Vaping Use: Never Used Second Hand Smoke Exposure: Yes service: No Current occupational status: employed Current occupational exposures/hazards: No Cognitive needs: No Hearing needs: No Vision needs: No Social History: lives alone with 17 yo son Substance History: none Trauma History: none Coding Level of Care Code Est Pt Level 4 (60136) Diagnoses Anxiety F41.9 Dysthymia F34.1 ADHD (attention deficit hyperactivity disorder), combined type F90.2
== END 2024-05-03 16:18 | disposition home or self-care (01) ==
LOC: HO.HOP 16:03
PROVIDERS: PCP Internal Medicine; Visit Provider Clinical Nurse Specialist Psychiatric/Mental Health
DX: F41.9 Anxiety disorder, unspecified (principal); F34.1 Dysthymic disorder; F90.2 Attention-deficit hyperactivity disorder, combined type
CPT/HCPCS: 99214

== ENCOUNTER → 2024-05-03 16:03 | Outpatient (BNVA) | payer MEDICAID, SELFPAY | PROVIDERS: PCP Internal Medicine; Visit Provider Clinical Nurse Specialist Psychiatric/Mental Health | DX: F41.9 Anxiety disorder, unspecified (principal); F34.1 Dysthymic disorder; F90.2 Attention-deficit hyperactivity disorder, combined type | CPT/HCPCS: 99212 ==

== ENCOUNTER 2024-06-27 16:33 | Outpatient (AMB) | payer OTHER, SELFPAY ==
--- NOTE | 2024-06-27 16:33 | MHC.OFFVISPS ---
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 fexofenadine (Senait Allergy) 180 mg PO DAILY hydroxyzine HCl 25 mg PO TID PRN nicotine 1 patch transdermal DAILY nicotine 1 patch transdermal Q24H nicotine (polacrilex) 2 mg buccal Q8H PRN sertraline (Zoloft) 25 mg PO DAILY HPI- Psychiatric Chief Complaint: f/u consultation HPI Narrative: She is stable on adderall 10mg BID and 5 mg at 4pm daily, zoloft 25mg daily and has hydroxyzine 25 mg tid prn for anxiety or sleep but has not had to use very often. Her PHQ9 went from 12 to 7 and her GAD7 went from 14 to 4 with current medications. Discussed with her that if her anxiety increases in future she could increase the zoloft to 50mg daily. she has no side effects from medicaitons; sleeps 7-8 hours at night; eating well; no weight loss. Past Psychiatric History: no IPLOC Subjective Subjective Subjective Medication Compliance: Yes Side effects from medications: No Review of Systems Medical Review of Systems: unchanged Mental Status Exam Mental Status Exam Patient Appearance: Well Grooomed and Appropriate Patient Orientation: Person, Place, Time and Situation Level of Consciousness: Awake, Appropriate and Alert Patient Behavior: Appropriate and Cooperative Mood Description: Happy and Anxious Affect Description: Happy and Anxious Patient Cognition Impaired: No Ability to Follow Directions: Good Speech Pattern: Clear and Coherent Memory Description: Intact Hallucinations: None Delusions: Not Present Thought Process: Intact and Goal Oriented Thought Content: positive for Intact and positive for Goal Oriented Judgement: Good Assessment and Plan Assessment & Plan (1) Anxiety: Status: Acute Code(s): F41.9 - Anxiety disorder, unspecified (2) ADHD (attention deficit hyperactivity disorder), combined type: Status: Acute Code(s): F90.2 - Attention-deficit hyperactivity disorder, combined type Plan Continue adderall 10mg BID and 5 mg at 4pm daily, zoloft 25mg daily and hydroxyzine 25 mg tid prn for anxiety or sleep If her anxiety increases in future she could increase the zoloft to 50mg daily. Remeber to take zoloft with food as most common side effect is nausea and GI upset Medications: Refilled dextroamphetamine-amphetamine 5 mg (Adderall) 5 mg orally take daily 4 pm; Partial Fill upon patient request. 30 tabs 0RF sertraline (Zoloft) 25 mg PO DAILY 30 tabs 2RF dextroamphetamine-amphetamine 10 mg (Adderall) administer doses at least 4 hours apart; Partial Fill upon patient request. 10 mg PO BID 60 tabs 0RF Counseling and coordination of Care Pt. Self Management counseling: Maintenance-social rhythm, Mod caffeine/ETOH intake and Sleep hygiene Medication management counseling: Effectiveness, Side effects, Dosing range, Duration, Drug interaction and Adherence Diagnosis and Prognosis Counseling: Accuracy of diagnosis, Prognosis over time, Impact of diagnosis on life functions, Impact of family relationship, Problematic behaviors secondary to diagnosis and Adequacy of current interventions Details: I spent 35 minutes reviewing the record, seeing the patient and documenting in the medical record. Counseling provided to the patient/caregiver as outlined below. Addressed patient/caregiver concerns regarding current medication regime including effective adherence. Addressed patient/caregiver concerns regarding diagnosis and prognosis including accuracy of diagnosis, prognosis over time, impact of diagnosis. Addressed patient/caregiver concerns regarding impact of recent stressors. [facility] Family History (Updated 02/21/24 @ 14:30 by Rosalva Garcia MD) Paternal Uncle Liver cancer Father Substance abuse Maternal Uncle Myocardial infarct Social History (Updated 02/21/24 @ 14:32 by Rosalva Garcia MD) Housing: Apartment Alcohol intake: current Comment: 2 days weekend 6 beers Patient Tobacco Use Status: Current everyday Tobacco user Tobacco use type: Cigarette Cigarettes Per Day: 5 Years Smoked: e-Cigarette/Vaping Use: Never Used Second Hand Smoke Exposure: Yes service: No Current occupational status: employed Current occupational exposures/hazards: No Cognitive needs: No Hearing needs: No Vision needs: No Social History: lives alone with 17 yo son Substance History: none Trauma History: none Coding Level of Care Code Est Pt Level 4 (33741) Diagnoses Anxiety F41.9 ADHD (attention deficit hyperactivity disorder), combined type F90.2
== END 2024-06-27 16:51 | disposition home or self-care (01) ==
LOC: HO.HOP 16:33
PROVIDERS: PCP Internal Medicine; Visit Provider Clinical Nurse Specialist Psychiatric/Mental Health
DX: F41.9 Anxiety disorder, unspecified (principal); F90.2 Attention-deficit hyperactivity disorder, combined type
CPT/HCPCS: 99214

== ENCOUNTER → 2024-06-27 16:33 | Outpatient (BNVA) | payer OTHER, SELFPAY | PROVIDERS: PCP Internal Medicine; Visit Provider Clinical Nurse Specialist Psychiatric/Mental Health | DX: F41.9 Anxiety disorder, unspecified (principal); F90.2 Attention-deficit hyperactivity disorder, combined type; Z71.89 Other specified counseling | CPT/HCPCS: 99212 ==

== ENCOUNTER 2024-10-03 11:59 | Outpatient (AMB) | payer OTHER, SELFPAY ==
--- NOTE | 2024-10-03 12:05 | AM.OFFWIN_ITS ---
Intake Vital Signs 3 10/03/24 12:10 Weight 180 lb BP 132/100 H Blood Pressure Location Lt brachial Position Sitting Pulse 87 Pulse Source Pulse Oximeter Temp 98.1 F Temp Source Oral Pulse Oximetry (%) 98 Oxygen Delivery Method Room Air Intake Visit Reasons: EP Mouth pain Intake Note: Patient here for wisdom tooth infection that has been present for about 4 days. Patient Tobacco Use Status: Current everyday Tobacco user Allergies No Known Allergies Allergy (Verified 10/03/24 12:09) Do you need a note to return to daycare/school/sports/work: No HPI HPI Comments 2 History of Present Illness0 Details History of Present Illness - The patient is a 43-year-old female pr esenting with dental pain due to infection x 4 days. - She reports an infection in the right lower tooth, describing it as loose and painful. - The condition has not been addressed b y her dentist due to scheduling, prompting her current visit. She has an appt in October. - No recurrence of fever has been noted, but she mentioned notable tenderness in the affected area. - She has had previous dental infections with tooth extraction treatments. Physical Exam General: Cooperative, healthy appearing, comfortable, no acute distress and well developed Orientation: Patient oriented x3 Limitations: No limitations Head: Normal to inspection Ears: Hearing grossly normal bilaterally Nose: Normal external nose present, overlapping tooth causing discomfort Face and sinus: Normal facial exam Eyes: Appearance normal, both eyes and all related structures Neck: Normal visual inspection and Yes full ROM Respiratory: Normal respiratory effort and able to speak in complete sentences Skin: No rashes or lesions noted Neuro: Patient oriented x3 Extremities: Normal to inspection PFSH Family History (Updated 02/21/24 @ 14:30 by Rosalva Garcia MD) Paternal Uncle Liver cancer Father Substance abuse Maternal Uncle Myocardial infarct Social History (Updated 02/21/24 @ 14:32 by Rosalva Garcia MD) Housing: Apartment Alcohol intake: current Comment: 2 days weekend 6 beers Patient Tobacco Use Status: Current everyday Tobacco user Tobacco use type: Cigarette Cigarettes Per Day: 5 Years Smoked: e-Cigarette/Vaping Use: Never Used Second Hand Smoke Exposure: Yes service: No Current occupational status: employed Current occupational exposures/hazards: No Cognitive needs: No Hearing needs: No Vision needs: No Review of Systems Const All systems reviewed & are unremarkable except as noted in HPI and below Physical Exam Vital Signs: Last Vital Signs Temp 98.1 F 10/03/24 12:10 Pulse 87 10/03/24 12:10 BP 132/100 H 10/03/24 12:10 Pulse Ox 98 10/03/24 12:10 Oxygen Delivery Method Room Air 10/03/24 12:10 HEENT Teeth image: 2 1. TTP, loose tooth, erythema, no drainage noted Assessment & Plan Assessment & Plan (1) Dental infection: Code(s): K04.7 - Periapical abscess without sinus Plan: The patient demonstrates symptoms indicating a dental abscess, for which I recommend commencing antibiotic therapy with Amoxicillin-Clavulanate Augmentin taken twice daily for seven days. To alleviate symptoms, warm salt water rinses and pain relief via Naproxen Aleve and Tylenol are advised, ensuring adequate time intervals between doses. The patient remains on her dentist's waiting list for additional care, including potential extraction as needed. Patient was informed and verbally consented to the use of an ambient scribe for clinic note documentation during this visit. Medications: New 2 amoxicillin-pot clavulanate 875-125 mg 1 tab PO Q12H 14 tabs 0RF Coding Level of Care Code Est Pt Level 3 (75372) Diagnoses Dental infection K04.7
[2024-10-03 12:10] VITALS: BP 132/100; PULSE 87; TEMP 36.7; O2SAT 98
== END 2024-10-03 12:58 | disposition home or self-care (01) ==
PROVIDERS: PCP Internal Medicine; Visit Provider Physician Assistant
DX: K04.7 Periapical abscess without sinus (principal)

== ENCOUNTER → 2024-10-03 11:59 | Outpatient (BNVA) | payer OTHER, SELFPAY | PROVIDERS: PCP Internal Medicine | DX: K04.7 Periapical abscess without sinus (principal) | CPT/HCPCS: 99212 ==

== ENCOUNTER 2024-10-07 13:01 | Outpatient (AMB) | payer OTHER, SELFPAY ==
[2024-10-07 13:08] VITALS: BP 128/80; PULSE 68; O2SAT 98; BMI 30.9
--- NOTE | 2024-10-07 13:08 | A.OFFPC_ITS ---
Vital Signs 10/07/24 13:08 Height 5 ft 4 in Weight 180 lb BMI 30.9 BP 128/80 Blood Pressure Location Lt brachial Position Sitting Pulse 68 Pulse Source Pulse Oximeter Pulse Oximetry (%) 98 Oxygen Delivery Method Room Air Intake Visit Reasons: annual PE Allergies No Known Allergies Allergy (Verified 10/07/24 13:08) Medication List - Last Reconciled 10/07/24 by Rosalva Garcia MD amoxicillin-pot clavulanate 875-125 mg 1 tab PO Q12H dextroamphetamine-amphetamine 10 mg (Adderall) 10 mg PO BID dextroamphetamine-amphetamine 5 mg (Adderall) 5 mg orally take daily 4 pm; Partial Fill upon patient request. fexofenadine (Senait Allergy) 180 mg PO DAILY hydroxyzine HCl 25 mg PO TID PRN nicotine 1 patch transdermal DAILY nicotine 1 patch transdermal Q24H nicotine (polacrilex) 2 mg buccal Q8H PRN sertraline (Zoloft) 25 mg PO DAILY Tobacco use date assessed: 10/07/24 Dental Screening Dental Screen Date: 10/07/24 Did you have a dental visit in the last 12 months?: Yes Did you have a dental problem in the last 6 months where you did not have access to dental care?: No Was dental information given to patient?: Patient has dentist [facility] Medical History (Updated 10/07/24 @ 13:27 by Rosalva Garcia MD) Anxiety Family History (Updated 10/07/24 @ 13:09 by Kaya Lewis [facility]) Paternal Uncle Liver cancer Father Substance abuse Maternal Uncle Myocardial infarct Other Mental health disorder Social History (Updated 10/07/24 @ 13:22 by Rosalva Garcia MD) Housing: Apartment Alcohol intake: current Comment: 1 days weekend 2 beers Patient Tobacco Use Status: Current everyday Tobacco user Tobacco use type: Cigarette Cigarettes Per Day: 5 Years Smoked: e-Cigarette/Vaping Use: Never Used Second Hand Smoke Exposure: Yes service: No Current occupational status: employed Current occupational exposures/hazards: No Cognitive needs: No Hearing needs: No Vision needs: No Questionnaire PHQ-9 Over the last 2 weeks, how often have you been bothered by any of the following problems? 1. Little interest or pleasure in doing things: not at all 2. Feeling down, depressed, or hopeless: not at all 3. Trouble falling or staying asleep, or sleeping too much: not at all 4. Feeling tired or having little energy: not at all 5. Poor appetite or overeating: not at all 6. Feeling bad about yourself - or that you are a failure or have let yourself or your family down: not at all 7. Trouble concentrating on things, such as reading the newspaper or watching television: not at all 8. Moving or speaking so slowly that other people could have noticed. Or the opposite - being so fidgety or restless that you have been moving around a lot more than usual: not at all 9. Thoughts that you would be better off or of hurting yourself in some way: not at all Total score: 0 Depression Screening Interpretation: Negative Depression Screening Done: Yes Source: Developed by Drs. Fransisco Rich, Tiny Delacruz, Chung Dykes and colleagues, with an educational chasity from [email or web address]. Thrive Questionnaire Date Thrive assessed: 10/07/24 I am a: Patient What is your living situation today?: I have a steady place to live Within the past 12 months, did the food you bought not last and you didn't have the money to get more?: Never true Within the past 12 months, did you worry whether your food would run out before you got money to buy more?: Never true Do you have trouble paying for medicines?: No Do you have trouble getting transportation to medical appointments?: No Do you have trouble paying your heating and electricity bill?: No Do you have trouble taking care of your child, family member or friend?: No Do you have trouble with day-to-day activities such as bathing, preparing meals, shopping, managing finances, etc.?: No Are you currently unemployed and looking for a job?: No Are you interested in more education?: No Please select the resources that you would like help with: None Currently or been in a relationship where the following occur: No concerns reported THRIVE Score: 0 AUDIT C Alcohol Use Questionnaire (AUDIT-C) 1. How often do you have a drink containing alcohol?: 2-4 times a month 2. How many drinks containing alcohol do you have on a typical day when you are drinking?: 5 or 6 3. How often do you have six or more drinks on one occasion?: Never Total Score: 4 Score Reviewed/Action Taken: Yes (reviewed and discussed ) GIL-7 AMB Questionnaire GIL-7 Date GIL - 7 assessed: 10/07/24 Feeling nervous, anxious, or on edge: 2 = More than half the days Not being able to stop or control worryin = Several days Worrying too much about different things: 2 = More than half the days Trouble relaxin = More than half the days Being so restless that it is hard to sit still: 2 = More than half the days Becoming easily annoyed or irritable: 0 = Not at all Feeling afraid as if something awful might happen: 0 = Not at all Total GIL-7 score (0-4 normal; 5-9 mild; 10-14 moderate; 15-21 severe): 9 Source: Developed by Drs. Fransisco Rich, Tiny Delacruz, Chung Dykes and colleagues, with an educational chasity from [email or web address]. GIL-7 Assessment Billing GIL-7 Assessment Tool: GIL-7 Assessment 33755 Review of Systems Const Denies poor appetite and Denies weakness Eyes Denies no additional complaints ENT Reports Normal hearing present, Denies dizziness, Denies nasal congestion, Denies tinnitus and Denies sore throat Card Denies chest pain, Denies syncope, Denies rapid heart rate and Denies dyspnea Resp Denies cough and Denies dyspnea GI Denies change in stool character, Reports constipation, Denies diarrhea, Denies nausea and Denies vomiting Denies urinary frequency, Denies difficulty voiding and Denies dysuria Neuro Reports Normal hearing present, Denies confusion, Denies dizziness, Denies syncope and Denies weakness Psych Denies confusion Physical exam (Primary Care) Vital Signs: Last Vital Signs Pulse 68 10/07/24 13:08 BP 128/80 10/07/24 13:08 Pulse Ox 98 10/07/24 13:08 Oxygen Delivery Method Room Air 10/07/24 13:08 BMI result Body Mass Index 30.9 Tobacco/Smoking Status: Tobacco use Status Tobacco use date assessed 10/07/24 10/07/24 13:14 Patient Tobacco Use Status Current everyday Tobacco 10/07/24 13:22 Tobacco use type Cigarette 10/07/24 13:22 e-Cigarette/Vaping Use Never Used 10/07/24 13:22 PHQ-9: PHQ-9 Score PHQ-9: Total score 0 10/07/24 13:40 Depression Screening Interpretation: Negative Thrive Assessment: Date of Thrive Assessment Date Thrive assessed 10/07/24 10/07/24 13:14 Currently or been in a relationship where the following occur: No concerns reported Const General: No confusion Orientation/consciousness: No confusion HENMT Head: Yes normocephalic Ears: external ears normal and TM's normal bilaterally Face and sinus: Yes normal facial exam Mouth: moist mucous membranes Throat: Yes tonsils normal Eyes Conjunctivae: conjunctivae normal Pupils: Equal, round and reactive pupils present and Pupil accommodation reflex normal Direct Ophthalmoscopy: normal light reflex Neck Neck: No lymphadenopathy Thyroid: Thyroid normal Chest Chest palpation & inspection: normal inspection of the chest Resp Effort & Inspection: normal respiratory effort and no audible wheezes Auscultation: clear to auscultation bilaterally, no crackles, no wheezes and lung sounds not diminished Cardio Rate: regular rate Rhythm: regular rhythm Peripheral pulses: radial pulses present and dorsalis pedis present GI Palpation (GI): no masses Auscultation: normal bowel sounds and normoactive bowel sounds Rectal Exam - Female: deferred Skin General skin exam: no rashes or lesions noted Rashes: no rashes Neuro General: No confusion Cranial nerves: Yes Equal, round and reactive pupils present and Yes Normal hearing present Cognition (Neuro): normal cognition Gait exam (Neuro): Normal gait present Motor exam (neuro): 5/5 motor strength present throughout Deep tendon reflexes (DTR's): Right brachioradialis reflex intensity grade: 2+, Left brachioradialis reflex intensity grade: 2+, Right patellar reflex intensity grade: 2+ and Left patellar reflex intensity grade: 2+ Extrem General: No edema Office Procedures Flu Questionnaire Does the patient have a severe egg allergy?: No Does the patient have severe life threatening allergies?: No Does the patient have a fever or illness today?: No Has the patient ever had Guillain-[place]lake Syndrome?: No Has the patient ever had any past reaction to a flu shot?: No Immunizations Fluarix Triv [id number] (PF) 45 mcg (15 mcg x 3)/0.5 mL IM syringe Performing Provider: Rosalva Garcia MD [facility] Administered by: CONSTANCE Lutz on 10/07/24 13:40 Dose Route Admin Location Dispensed Lot Number Expiration Date NDC Triage Assistant 0.5 mL IM Left Deltoid 0.5 mL [id number] 02/10/25 [id number] [employer] VIS Given Date VIS Provided VIS Publication Date 10/07/24 Single Vaccine 21 Eligibility Eligibility Date Funding Source Not [facility] Eligible 10/07/24 Private Coding Level of Care Code Est Pt Prev Care 40-64y(34051) Diagnoses Annual physical exam Z00.00 Tobacco abuse Z72.0 Generalized anxiety disorder F41.1 ADHD (attention deficit hyperactivity disorder), combined type F90.2 Obesity (BMI 30.0-34.9) E66.811 GERD (gastroesophageal reflux disease) K21.9 Thyroid enlarged E04.9 Breast cancer screening by mammogram Z12. Additional Codes GIL-7 Assessment Billing - GIL-7 Assessment Tool: GIL-7 Assessment 56914 ([id number]) Assessment & Plan Assessment & Plan (1) Annual physical exam: Code(s): Z00.00 - Encounter for general adult medical examination without abnormal findings Category: Medical Plan: Patient is advised to eat healthy, keep well hydrated, keep active and have adequate sleep. (2) Tobacco abuse: Code(s): Z72.0 - Tobacco use Category: Medical Plan: Patient is strongly advised to stop smoking! (3) Generalized anxiety disorder: Comment: Declined referral for counseling Code(s): F41.1 - Generalized anxiety disorder Category: Medical Plan: Continue with present medication (4) ADHD (attention deficit hyperactivity disorder), combined type: Code(s): F90.2 - Attention-deficit hyperactivity disorder, combined type Category: Medical Plan: Continue with present medication. Has been evaluated by Psychiatry (5) Obesity (BMI 30.0-34.9): Code(s): E66.811 - Obesity, class 1 Category: Medical (6) GERD (gastroesophageal reflux disease): Code(s): K21.9 - Gastro-esophageal reflux disease without esophagitis Category: Medical (7) Thyroid enlarged: Code(s): E04.9 - Nontoxic goiter, unspecified Category: Medical (8) Breast cancer screening by mammogram: Code(s): Z12.31 - Encounter for screening mammogram for malignant neoplasm of breast Category: Medical Plan History of Present Illness 43-year-old obese female for physical exam and management of chronic conditions. He has a history ofanxiety disorder and ADHD. He has been previously evaluated by psychiatry, diagnosed with ADHD, and prescribed sertraline 25 mg and Adderall. He is also noted to have tobacco use disorder, as he is a current smoker. During a previous encounter, low potassium levels were detected in his blood work. The patient reports nocturia, waking up approximately three times per night to urinate, which he mentions may be associated with high water intake before bed. His medications and tobacco use are ongoing concerns, and previous advice to cease smoking has been documented. Health Maintenance - Counseling for tobacco cessation. - Discussion regarding influenza vaccination, which the patient had already received, reinforcing the importance of seasonal vaccination. Social History - Currently consumes a high amount of water before bedtime. - Smoker, noted to have a tobacco use disorder. Review of Systems - Genitourinary: Reports nocturia, approximately three times per night. - General: Denies excessive water intake or nocturia causing significant distress. Physical Exam General: Cooperative, healthy appearing, comfortable, no acute distress and well developed Orientation: Patient oriented x3 Limitations: No limitations Head: Normal to inspection Ears: Hearing grossly normal bilaterally Nose: Normal external nose present Face and sinus: Normal facial exam Eyes: Appearance normal, both eyes and all related structures Neck: Normal visual inspection and Yes full ROM Respiratory: Normal respiratory effort and able to speak in complete sentences. Clear to auscultation bilaterally Cardiovascular: Regular rate and rhythm. Normal S1 and S2 GI: Normal to inspection. Soft to palpation and nontender Skin: No rashes or lesions noted Neuro: Patient oriented x3 Extremities: Normal to inspection Results - Previous blood work noted low potassium levels. Plan - Continue current medications for ADHD and anxiety as prescribed. - Encourage smoking cessation and offer support for tobacco cessation strategies. - Monitor and address nocturia possibly related to fluid intake at night. - Ensure regular follow-up for chronic condition management and reassessment of medication efficacy and side effects. - Annual flu vaccinations reinforced due to seasonal considerations. Patient was informed and verbally consented to the use of an ambient scribe for clinic note documentation during this visit. Discussion Notes I discussed with the patient the importance of continuing his prescribed medication regimen for ADHD and anxiety. We reviewed the potential benefits of smoking cessation on overall health and discussed various cessation techniques. The patient has received his flu vaccine, and I emphasized the significance of regular vaccinations, especially during flu season to reduce health risks. I confirmed the plan to monitor fluid intake to manage nocturia and advised the patient to report any significant changes in symptoms. There was an agreement on the current management strategy with ongoing medication and lifestyle modifications. Patient Instructions - Continue taking prescribed medications as directed. - Reduce water intake before bedtime to help manage nighttime urination. - Pursue smoking cessation; consider available resources and support. - Attend scheduled follow-ups for medication and health management. - Report any new or worsening symptoms promptly. Orders: Orders Complete Blood Count Auto Diff Today K21.9 - Gastro-esophageal reflux disease without esophagitis Comprehensive Met. Panel Today K21.9 - Gastro-esophageal reflux disease without esophagitis Free T4 (Free Thyroxine) Today K21.9 - Gastro-esophageal reflux disease without esophagitis Lipid Panel Today E78.00 - Pure hypercholesterolemia, unspecified, K21.9 - Gastro-esophageal reflux disease without esophagitis Vitamin B12 and Folate Today K21.9 - Gastro-esophageal reflux disease without esophagitis US thyroid Today K21.9 - Gastro-esophageal reflux disease without esophagitis MM tomosynthesis screening BI Today Z12.31 - Encounter for screening mammogram for malignant neoplasm of breast [place] upper GI series Today K21.9 - Gastro-esophageal reflux disease without esophagitis, R13.10 - Dysphagia, unspecified Thyroid Stimulating Hormone Today K21.9 - Gastro-esophageal reflux disease without esophagitis Vitamin D 25-OH Total Today K21.9 - Gastro-esophageal reflux disease without esophagitis UA CC w/rflx Micro + Cult Today K21.9 - Gastro-esophageal reflux disease without esophagitis, R30.0 - Dysuria Referrals Medical Weight Management Referral E66.811 - Obesity, class 1 Medications: New omeprazole 20 mg PO DAILY 30 caps 0RF K21.9 - Gastro-esophageal reflux disease without esophagitis
--- OUTSIDE RECORDS SUMMARY | 2024-10-07 14:48 | XMS_ITS | Clinical Summary ---
Author Organization [facility] Address [address] [place] [address] Care Team Providers Care Composition Molder Name Role Phone Rosalva Garcia MD Primary Care Provider [facility], Pcp Unavailable Unavailable Allergies No known active allergies Medications Medication Sig Dispensed Refills Start Date End Date Status levonorgestrel (MIRENA) 20 MCG/24HR IUD 1 Each by Intrauterine route once. 0 Active Immunizations Name Administration Dates Next Due Tdap 06/17/2016 Family History Medical History Relation Name Comments Diabetes Father Hypertension Father Diabetes Paternal Grandfather Relation Name Status Comments Father Paternal Grandfather Social History Tobacco Use Types Packs/Day Years Used Date Smoking Tobacco: Every Day Smokeless Tobacco: Never Alcohol Use Standard Drinks/Week Comments Not Currently 0 (1 standard drink = 0.6 oz pur e alcohol) Sex Assigned at Date Recorded Not on file Job Start Date Occupation Industry Not on file Not on file Not on file Last Filed Vital Signs Vital Sign Reading Time Taken Comments Blood Pressure 120/70 04/26/2023 3:32 PM EDT Pulse 76 06/30/2016 1:15 PM EST Temperature 36.7 ??C (98.1 ??F) 06/17/2016 3:06 PM ED T Respiratory Rate 16 06/30/2016 1:15 PM EST Oxygen Saturation - - Inhaled Oxygen Concentration - - Weight 80.7 kg (178 lb) 04/26/2023 3:11 PM EDT Height 162.6 cm (5' 4 ) 04/06/2021 10:30 AM EDT Body Mass Index 30.55 04/06/2021 10:30 AM EDT Plan of Treatment Health Maintenance Due Date Last Done Comments Covid-19 Vaccine (#1) 05/04/1980 TOBACCO CHECK/ADVISE 11/01/1997 CHOLESTEROL SCREENING 1999 CERVICAL CANCER SCREENING 11/01/2000 BASELINE HEALTH EXAM 40-64 2019 06/17/2016, MAMMOGRAM 2019 INFLUENZA (#1) 2024 BMI CHECK/ADVISE 08/14/2024 06/17/2016 DEPRESSION SCREENING/FOLLOWUP 08/14/2024 SOCIAL NEEDS SCREENING 08/14/2024 DTAP/TDAP/TD (2 - Td or Tdap) 06/17/2026 06/17/2016 PNEUMOCOCCAL VACCINE FOR HIG H RISK PATIENTS (#1) 11/01/2044 Care Teams Composition Molder Relationship Specialty Start Date End Date Rosalva Garcia MD PCP - General Internal Medicine 04/04/23 Community, Pcp 06/17/16
== END 2024-10-07 13:42 | disposition home or self-care (01) ==
PROVIDERS: PCP Internal Medicine; Visit Provider Internal Medicine
DX: Z00.00 Encounter for general adult medical examination without abnormal findings (principal); F41.1 Generalized anxiety disorder; E66.811 Obesity, class 1; Z68.30 Body mass index [BMI] 30.0-30.9, adult; Z72.0 Tobacco use; F90.2 Attention-deficit hyperactivity disorder, combined type; K21.9 Gastro-esophageal reflux disease without esophagitis; E04.9 Nontoxic goiter, unspecified; Z12.31 Encounter for screening mammogram for malignant neoplasm of breast; Z23 Encounter for immunization

== ENCOUNTER → 2024-10-07 13:01 | Outpatient (BNVA) | payer OTHER, SELFPAY | PROVIDERS: PCP Internal Medicine; Visit Provider Internal Medicine | DX: Z00.00 Encounter for general adult medical examination without abnormal findings (principal); Z23 Encounter for immunization; F41.1 Generalized anxiety disorder; F90.2 Attention-deficit hyperactivity disorder, combined type; E66.811 Obesity, class 1; K21.9 Gastro-esophageal reflux disease without esophagitis; E03.9 Hypothyroidism, unspecified; Z72.0 Tobacco use | CPT/HCPCS: 90471; 90656; 96127; 99396 ==

== ENCOUNTER → 2024-12-18 14:50 | Outpatient (BNVA) | payer OTHER, SELFPAY | PROVIDERS: PCP Internal Medicine; Visit Provider Physician Assistant Surgical ==

== ENCOUNTER 2024-12-24 08:08 | Outpatient (AMB) | payer OTHER, SELFPAY ==
--- OUTSIDE RECORDS SUMMARY | 2024-12-24 08:10 | XMS_ITS | Clinical Summary ---
Author Organization [facility] Address [address] [place] [address] Care Team Providers Care Strand Galvanizer Name Role Phone Rosalva Garcia MD Primary Care Provider [facility], Pcp Unavailable Unavailable Allergies No known active [...] HEALTH EXAM 40-64 2019 06/17/2016, MAMMOGRAM 2019 BMI CHECK/ADVISE 08/14/2024 06/17/2016 DEPRESSION SCREENING/FOLLOWUP 08/14/2024 SOCIAL NEEDS SCREENING 08/14/2024 INFLUENZA (Season Ended) 2025 DTAP/TDAP/TD (2 - Td or Tdap) 06/17/2026 06/17/2016 PNEUMOCOCCAL VACCINE FOR HIG H RISK PATIENTS (#1) 11/01/2044 Care Teams Strand Galvanizer Relationship Specialty Start Date End Date Rosalva Garcia MD PCP - General Internal Medicine 04/04/23 Community, Pcp 06/17/16
--- NOTE | 2024-12-24 13:24 | A.OFFVIS_ITS ---
VS Expanded 12/24/24 14:37 Height 5 ft 4 in Weight 179 lb 9 oz BMI 30.8 Body Fat % 34.5 Body Fat Mass 62 Fat Free Mass 117.6 Visceral Fat Rating 7 Body Water Mass 83.8 Basal Metabolic Rate/Score 1,595 Intake Visit Reasons: [employer] [facility] Allergies No Known Allergies Allergy (Verified 12/24/24 13:24) Medication List - Last Reconciled 12/24/24 by Yohannes Blue MD dextroamphetamine-amphetamine 10 mg (Adderall) 10 mg PO BID dextroamphetamine-amphetamine 5 mg (Adderall) 5 mg orally take daily 4 pm; Partial Fill upon patient request. fexofenadine (Senait Allergy) 180 mg PO DAILY nicotine 1 patch transdermal Q24H omeprazole 20 mg PO DAILY sertraline (Zoloft) 25 mg PO DAILY HPI HPI [employer] [facility]: Details: Start time: 1pm, End time: 2pm I spent 45 minutes speaking with the patient on the phone plus an additional 15 minutes reviewing and updating records for a total of 60 minutes HPI Comments Details: Previous weight loss efforts: self diets and exercise Wakes up: 6.30am, Sleeps: 10.30pm Breakfast: skips Lunch: 12pm (yogurt, fruits, sandwich) Dinner: 6pm (salad, chicken) Snacks: 8pm (donuts, cake) Exercise: Has a gym membership Beverages: Coffee (1 cup/d), tea: none, soda: none, juice: none, ETOH: none PFSH Medical History (Updated 10/07/24 @ 13:27 by Rosalva Garcia MD) Anxiety Surgical History (Updated 12/18/24 @ 15:04 by Eryn Rice CMA) No history of previous surgery Family History (Updated 10/07/24 @ 13:09 by Kaya Lewis CMA) Paternal Uncle Liver cancer Father Substance abuse Maternal Uncle Myocardial infarct Other Mental health disorder Social History (Updated 12/18/24 @ 15:04 by Eryn Rice CMA) Housing: Apartment Alcohol intake: current Alcohol intake frequency: a few times a week Comment: 1 days weekend 2 beers Patient Tobacco Use Status: Current everyday Tobacco user Tobacco use type: Cigarette Cigarettes Per Day: 5 Years Smoked: e-Cigarette/Vaping Use: Never Used Second Hand Smoke Exposure: Yes service: No Current occupational status: employed Current occupational exposures/hazards: No Cognitive needs: No Hearing needs: No Vision needs: No Telehealth Telehealth Telehealth Platform: Telephone Location of provider rendering services: practice address Location of patient: address on file Patient Identification confirmed using: Name, : Yes Telehealth method: voice only Patient verbally consented to treatment: Yes Patient verbally consented to billing insurance company: Yes Patient informed of any privacy concerns related to visit: Yes Minutes spent on Phone/Video with Pt.: 60 Assessment & Plan Assessment & Plan (1) Obesity (BMI 30.0-34.9): Code(s): E66.811 - Obesity, class 1 Category: Medical Plan: 1. Please buy a body composition scale as soon as possible and send me weight measurements weekly 2. I ordered a medication to help you with the weight loss which is called Zepbound. My office will try to authorize it. Please let me know when you receive it so I can give you a meal and exercise plan. Common side effects include nausea, vomiting, constipation, diarrhea, abdominal pain. Please let me know if you develop any of these symptoms. 3. Use a calorie-counting len to track your daily calories to create a calorie deficit with a target of consuming 5637-7824 calories per day. 4. Do aerobic exercise (outside walking, or treadmill, or elliptical or stationary bike) and do 150 minutes of aerobic exercise per week, or 22 minutes per day. 5. Goal is to lose at least 1.5-2lbs per week 6. Goal to lose at least 10% of your weight, which is about 19lbs. Minimum goal: 160lbs Medications: New tirzepatide (weight loss) (Zepbound) for 4 weeks 2.5 mg (0.5 mL) subcut QWEEK 2 mL 0RF E66.811 - Obesity, class 1, Z68.30 - Body mass index [BMI] 30.0-30.9, adult
[2024-12-24 14:37] VITALS: BMI 30.8
== END 2024-12-24 15:02 | disposition home or self-care (01) ==
LOC: HO.HBS 08:08
PROVIDERS: PCP Internal Medicine; Visit Provider Surgery
DX: E66.811 Obesity, class 1 (principal); Z68.30 Body mass index [BMI] 30.0-30.9, adult
CPT/HCPCS: 98011

== ENCOUNTER → 2024-12-24 08:08 | Outpatient (BNVA) | payer OTHER, SELFPAY | PROVIDERS: PCP Internal Medicine; Visit Provider Surgery ==

== ENCOUNTER 2025-01-14 09:53 | Outpatient (AMB) | payer OTHER, SELFPAY ==
[2025-01-14 10:00] VITALS: BP 110/78; PULSE 83; O2SAT 99; BMI 30.2
--- NOTE | 2025-01-14 10:00 | A.OFFPC_ITS ---
Vital Signs 01/14/25 10:00 Height 5 ft 4 in Weight 176 lb 4 oz BMI 30.2 BP 110/78 Blood Pressure Location Lt brachial Position Sitting Pulse 83 Pulse Source Pulse Oximeter Pulse Oximetry (%) 99 Oxygen Delivery Method Room Air Intake Visit Reasons: Med review/refill Clinical Application Specialist Required: No Accompanied by: Self / Same As Patient Allergies No Known Allergies Allergy (Verified 01/14/25 10:01) Medication List - Last Reconciled 01/14/25 by Rosalva Garcia MD dextroamphetamine-amphetamine 10 mg (Adderall) 10 mg PO BID dextroamphetamine-amphetamine 5 mg (Adderall) 5 mg orally take daily 4 pm; Partial Fill upon patient request. fexofenadine (Senait Allergy) 180 mg PO DAILY nicotine 1 patch transdermal Q24H omeprazole 20 mg PO DAILY sertraline (Zoloft) 25 mg PO DAILY tirzepatide (weight loss) 5 mg (0.5 mL) subcut QWEEK Tobacco use date assessed: 01/14/25 Dental Screening Dental Screen Date: 01/14/25 Did you have a dental visit in the last 12 months?: No Did you have a dental problem in the last 6 months where you did not have access to dental care?: No Was dental information given to patient?: Patient has dentist [facility] Medical History (Updated 01/14/25 @ 10:33 by Rosalva Garcia MD) Anxiety Surgical History No history of previous surgery Family History Paternal Uncle Liver cancer Father Substance abuse Maternal Uncle Myocardial infarct Other Mental health disorder Social History Housing: Apartment Alcohol intake: current Alcohol intake frequency: a few times a week Comment: 1 days weekend 2 beers Patient Tobacco Use Status: Current everyday Tobacco user Tobacco use type: Cigarette Cigarettes Per Day: 5 Years Smoked: Packs per year/per ci.00 e-Cigarette/Vaping Use: Never Used Second Hand Smoke Exposure: Yes service: No Current occupational status: employed Current occupational exposures/hazards: No Cognitive needs: No Hearing needs: No Vision needs: No Questionnaire PHQ-9 Over the last 2 weeks, how often have you been bothered by any of the following problems? 1. Little interest or pleasure in doing things: not at all 2. Feeling down, depressed, or hopeless: not at all 3. Trouble falling or staying asleep, or sleeping too much: not at all 4. Feeling tired or having little energy: several days 5. Poor appetite or overeating: several days 6. Feeling bad about yourself - or that you are a failure or have let yourself or your family down: several days 7. Trouble concentrating on things, such as reading the newspaper or watching television: not at all 8. Moving or speaking so slowly that other people could have noticed. Or the opposite - being so fidgety or restless that you have been moving around a lot more than usual: several days 9. Thoughts that you would be better off or of hurting yourself in some way: not at all Total score: 4 Source: Developed by Drs. Fransisco Rich, Tiny Delacruz, Chung Dykes and colleagues, with an educational chasity from [employer]. Thrive Questionnaire Date Thrive assessed: 01/14/25 I am a: Patient What is your living situation today?: I have a steady place to live Within the past 12 months, did the food you bought not last and you didn't have the money to get more?: Sometimes True Within the past 12 months, did you worry whether your food would run out before you got money to buy more?: Sometimes True Do you have trouble paying for medicines?: No Do you have trouble getting transportation to medical appointments?: Yes Do you have trouble paying your heating and electricity bill?: Yes Do you have trouble taking care of your child, family member or friend?: No Do you have trouble with day-to-day activities such as bathing, preparing meals, shopping, managing finances, etc.?: No Are you currently unemployed and looking for a job?: No Are you interested in more education?: Yes Please select the resources that you would like help with: Food and Utilities Currently or been in a relationship where the following occur: No concerns reported THRIVE Score: 4 AUDIT C Alcohol Use Questionnaire (AUDIT-C) 1. How often do you have a drink containing alcohol?: Monthly or less 2. How many drinks containing alcohol do you have on a typical day when you are drinking?: 1 or 2 3. How often do you have six or more drinks on one occasion?: Less than monthly Total Score: 2 GIL-7 AMB Questionnaire GIL-7 Date GIL - 7 assessed: 01/14/25 Feeling nervous, anxious, or on edge: 1 = Several days Not being able to stop or control worryin = More than half the days Worrying too much about different things: 1 = Several days Trouble relaxin = Nearly every day Being so restless that it is hard to sit still: 0 = Not at all Becoming easily annoyed or irritable: 1 = Several days Feeling afraid as if something awful might happen: 1 = Several days Total GIL-7 score (0-4 normal; 5-9 mild; 10-14 moderate; 15-21 severe): 9 Source: Developed by Drs. Fransisco Rich, Tiny Delacruz, Chung Dykes and colleagues, with an educational chasity from [employer]. Physical exam (Primary Care) Vital Signs: Last Vital Signs Pulse 83 01/14/25 10:00 BP 110/78 01/14/25 10:00 Pulse Ox 99 01/14/25 10:00 Oxygen Delivery Method Room Air 01/14/25 10:00 BMI result Body Mass Index 30.2 Tobacco/Smoking Status: Tobacco use Status Tobacco use date assessed 01/14/25 01/14/25 10:06 Patient Tobacco Use Status Current everyday Tobacco 01/14/25 10:06 Tobacco use type Cigarette 01/14/25 10:06 e-Cigarette/Vaping Use Never Used 01/14/25 10:06 PHQ-9: PHQ-9 Score PHQ-9: Total score 4 01/14/25 10:34 Thrive Assessment: Date of Thrive Assessment Date Thrive assessed 01/14/25 01/14/25 10:06 Currently or been in a relationship where the following occur: No concerns reported Const General: alert; No acute distress Eyes Conjunctivae: conjunctivae normal Resp Auscultation: clear to auscultation bilaterally Cardio Rate: regular rate Rhythm: regular rhythm GI Inspection: Yes normal to inspection Extrem General: Yes normal to inspection and No edema Coding Level of Care Code Est Pt Level 4 (88967) Complex EM visit Add On G2211 Diagnoses GERD (gastroesophageal reflux disease) K21.9 Obesity (BMI 30.0-34.9) E66.811 ADHD (attention deficit hyperactivity disorder), combined type F90.2 Tobacco abuse Z72.0 Breast cancer screening by mammogram Z12.31 Generalized anxiety disorder F41.1 Colon cancer screening Z12.11 Assessment & Plan Assessment & Plan (1) GERD (gastroesophageal reflux disease): Code(s): K21.9 - Gastro-esophageal reflux disease without esophagitis Category: Medical Plan: Avoid the foods that causes that usually spicy foods, tomato products, juices, coffee, soda and foods that your sensitive to. After eating do not lie down, allow 3-4 hours before in lie down. And keep the head of bed above 30 degrees to avoid the acid from going up. (2) Obesity (BMI 30.0-34.9): Code(s): E66.811 - Obesity, class 1 Category: Medical Plan: Continue with diet and exercise (3) ADHD (attention deficit hyperactivity disorder), combined type: Code(s): F90.2 - Attention-deficit hyperactivity disorder, combined type Category: Medical Plan: Continue with present medication blood pressure has been under control (4) Tobacco abuse: Code(s): Z72.0 - Tobacco use Category: Medical Plan: Patient is strongly advised to stop smoking. smoking 3 a day not (5) Breast cancer screening by mammogram: Code(s): Z12.31 - Encounter for screening mammogram for malignant neoplasm of breast Category: Medical Plan: Patient is reminded about mammogram (6) Generalized anxiety disorder: Comment: Declined referral for counseling Code(s): F41.1 - Generalized anxiety disorder Category: Medical Plan: Continue with sertraline, declined counseling (7) Colon cancer screening: Code(s): Z12.11 - Encounter for screening for malignant neoplasm of colon Category: Medical Plan: Patient is reminded about colonoscopy Plan History of Present Illness The patient is a 44-year-old female presenting with a follow-up visit for chronic conditions. She has a history of obesity, for which she is actively engaged in a weight management program. This has been highlighted by the use of a weekly injection to aid weight loss, which has shown favorable outcomes recently. She reports a history of anxiety disorders with a treatment regimen including sertraline and ADHD managed with Adderall. There was an issue with the prescription of Adderall, requiring confirmation of dosage and pharmacy supply. She has been encouraged to stop smoking and is attempting to reduce cigarette consumption, having cut down to approximately three cigarettes per day. Prior medical investigations noted hypokalemia, leading to a need for updated blood work and monitoring. Additionally, she is due for a mammogram, an appointment she has confirmed. Given her age, colon cancer screening is now indicated, prompting a referral to a pressure test operator. Health Maintenance - Mammogram planned and appointment scheduled - Colon cancer screening via colonoscopy discussed, referral to pressure test operator made - Blood pressure well-controlled; ongoing monitoring recommended - Smoking cessation strongly advised with progress noted - Continued weight management with increased dosage of current injection therapy - Reminder to continue with diet and exercise as part of weight management strategy Social History - Current smoker, attempting cessation with reduction in daily cigarette intake - Active participation in weight management program - History of fluctuating medication adherence due to prescription availability issues Review of Systems - Constitutional: Reports no issues; weight management ongoing - Psychological: Reports anxiety, managed with sertraline; reports ADHD management with Adderall Physical Exam Results - Labs: Previous labs in January 2024 indicated hypokalemia; new fasting blood work ordered - Diagnostic Tests: Mammogram appointment scheduled; colonoscopy referral made Plan The patient continues with her current chronic condition management plan. Her hypertension is under control, maintaining adherence to healthier lifestyle activities. Mammogram and colonoscopy are scheduled for preventive screening. Smoking cessation efforts are encouraged with a goal of further reduction. For weight management, the injection dosage is increased with instructions to report any adverse symptoms. Blood work follow-up is vital to reassess potassium levels. Anxiety management with sertraline is ongoing, and she has chosen to decline counseling. The prescription issues regarding Adderall will be resolved to ensure correct dosing. Patient was informed and verbally consented to the use of an ambient scribe for clinic note documentation during this visit. Discussion Notes I discussed the importance of regular health maintenance activities with the patient, emphasizing the need for mammography and colonoscopy screenings due to potential risks associated with her age and medical history. Smoking cessation was discussed at length, with the patient demonstrating significant progress toward reducing her cigarette intake. The appropriate pharmaceutical interventions were reviewed, and the decision was made to increase the dosage of her weight loss injection, provided nausea was not an issue. I informed the patient about the need for fasting blood work to monitor previous hypokalemia. Discussions included potential side effects and benefits of her ongoing medications and interventions. I reinforced the necessity of following up with lab results for a comprehensive understanding of her current health status. Patient Instructions - Attend scheduled mammogram appointment - Follow up with pressure test operator for colonoscopy - Adhere strictly to diet and exercise regimen - Reduce cigarette smoking gradually aimed at cessation - Continue weight loss medication with increased dose as directed and report any adverse symptoms - Complete fasting blood tests as requested - Continue with prescribed sertraline; notify if considering counseling in the future - Monitor blood pressure regularly and ensure prescription adherence Orders: Referrals Gastroenterology Referral Z12.11 - Encounter for screening for malignant neoplasm of colon Medications: Changed From tirzepatide (weight loss) (Zepbound) for 4 weeks 2.5 mg (0.5 mL) subcut QWEEK 2 mL 0RF E66.811 - Obesity, class 1, Z68.30 - Body mass index [BMI] 30.0-30.9, adult To tirzepatide (weight loss) for 4 weeks 5 mg (0.5 mL) subcut QWEEK 2 mL 1RF E66.811 - Obesity, class 1, Z68.30 - Body mass index [BMI] 30.0-30.9, adult Refilled dextroamphetamine-amphetamine 5 mg (Adderall) 5 mg orally take daily 4 pm; Partial Fill upon patient request. 30 tabs 0RF Z12.11 - Encounter for screening for malignant neoplasm of colon
== END 2025-01-14 10:40 | disposition home or self-care (01) ==
LOC: HO.HMCH 09:54
PROVIDERS: PCP Internal Medicine; Visit Provider Internal Medicine
DX: K21.9 Gastro-esophageal reflux disease without esophagitis (principal); E66.811 Obesity, class 1; Z68.30 Body mass index [BMI] 30.0-30.9, adult; F90.2 Attention-deficit hyperactivity disorder, combined type; Z72.0 Tobacco use; Z12.31 Encounter for screening mammogram for malignant neoplasm of breast; F41.1 Generalized anxiety disorder; Z12.11 Encounter for screening for malignant neoplasm of colon

== ENCOUNTER → 2025-01-14 09:53 | Outpatient (BNVA) | payer OTHER, SELFPAY | PROVIDERS: PCP Internal Medicine; Visit Provider Internal Medicine | DX: K21.9 Gastro-esophageal reflux disease without esophagitis (principal); E66.811 Obesity, class 1; F90.2 Attention-deficit hyperactivity disorder, combined type; F41.1 Generalized anxiety disorder; F17.210 Nicotine dependence, cigarettes, uncomplicated; Z68.30 Body mass index [BMI] 30.0-30.9, adult | CPT/HCPCS: 99212 ==

== ENCOUNTER 2025-04-24 14:33 | Outpatient (AMB) | payer OTHER, SELFPAY ==
[2025-04-24 14:37] VITALS: BP 122/78; PULSE 83; TEMP 36.2; O2SAT 97; BMI 28.0
--- NOTE | 2025-04-24 14:37 | MHC.PC.OV ---
Vital Signs 04/24/25 14:37 Height 5 ft 4 in Weight 163 lb 2 oz BMI 28.0 BP 122/78 Blood Pressure Location Lt brachial Position Sitting Pulse 83 Pulse Source Pulse Oximeter Temp 97.1 F Temp Source Temporal Artery Scan Pulse Oximetry (%) 97 Oxygen Delivery Method Room Air Intake Visit Reasons: 3 months Allergies No Known Allergies Allergy (Verified 04/24/25 14:57) Medication List - Last Reconciled 04/24/25 by Rosalva Garcia MD dextroamphetamine-amphetamine 10 mg (Adderall) 10 mg PO BID dextroamphetamine-amphetamine 5 mg (Adderall) 5 mg orally take daily 4 pm; Partial Fill upon patient request. fexofenadine (Senait Allergy) 180 mg PO DAILY nicotine 1 patch transdermal Q24H omeprazole 20 mg PO DAILY sertraline (Zoloft) 25 mg PO DAILY tirzepatide (weight loss) (Zepbound) 7.5 mg (0.5 mL) subcut QWEEK Tobacco use date assessed: 04/24/25 Dental Screening Dental Screen Date: 04/24/25 Did you have a dental visit in the last 12 months?: Yes Did you have a dental problem in the last 6 months where you did not have access to dental care?: No Was dental information given to patient?: Patient has dentist [facility] Medical History Overweight Anxiety Surgical History No history of previous surgery Family History Paternal Uncle Liver cancer Father Substance abuse Maternal Uncle Myocardial infarct Other Mental health disorder Social History Housing: Apartment Alcohol intake: current Alcohol intake frequency: a few times a week Comment: 1 days weekend 2 beers Patient Tobacco Use Status: Current everyday Tobacco user Tobacco use type: Cigarette Cigarettes Per Day: 5 Years Smoked: e-Cigarette/Vaping Use: Never Used Second Hand Smoke Exposure: Yes service: No Current occupational status: employed Current occupational exposures/hazards: No Cognitive needs: No Hearing needs: No Vision needs: No Questionnaire PHQ-9 Over the last 2 weeks, how often have you been bothered by any of the following problems? 1. Little interest or pleasure in doing things: not at all 2. Feeling down, depressed, or hopeless: not at all 3. Trouble falling or staying asleep, or sleeping too much: not at all 4. Feeling tired or having little energy: several days 5. Poor appetite or overeating: several days 6. Feeling bad about yourself - or that you are a failure or have let yourself or your family down: several days 7. Trouble concentrating on things, such as reading the newspaper or watching television: not at all 8. Moving or speaking so slowly that other people could have noticed. Or the opposite - being so fidgety or restless that you have been moving around a lot more than usual: several days 9. Thoughts that you would be better off or of hurting yourself in some way: not at all Total score: 4 Source: Developed by Drs. Fransisco Rich, Tiny Delacruz, Chung Dykes and colleagues, with an educational chasity from [employer]. Thrive Questionnaire Date Thrive assessed: 01/14/25 I am a: Patient What is your living situation today?: I have a steady place to live Within the past 12 months, did the food you bought not last and you didn't have the money to get more?: Sometimes True Within the past 12 months, did you worry whether your food would run out before you got money to buy more?: Sometimes True Do you have trouble paying for medicines?: No Do you have trouble getting transportation to medical appointments?: Yes Do you have trouble paying your heating and electricity bill?: Yes Do you have trouble taking care of your child, family member or friend?: No Do you have trouble with day-to-day activities such as bathing, preparing meals, shopping, managing finances, etc.?: No Are you currently unemployed and looking for a job?: No Are you interested in more education?: Yes Currently or been in a relationship where the following occur: No concerns reported THRIVE Score: 4 AUDIT C Alcohol Use Questionnaire (AUDIT-C) 1. How often do you have a drink containing alcohol?: Monthly or less 2. How many drinks containing alcohol do you have on a typical day when you are drinking?: 1 or 2 3. How often do you have six or more drinks on one occasion?: Never Total Score: 1 GIL-7 AMB Questionnaire GIL-7 Date GIL - 7 assessed: 01/14/25 Feeling nervous, anxious, or on edge: 1 = Several days Not being able to stop or control worryin = More than half the days Worrying too much about different things: 1 = Several days Trouble relaxin = Nearly every day Being so restless that it is hard to sit still: 0 = Not at all Becoming easily annoyed or irritable: 1 = Several days Feeling afraid as if something awful might happen: 1 = Several days Total GIL-7 score (0-4 normal; 5-9 mild; 10-14 moderate; 15-21 severe): 9 Source: Developed by Drs. Fransisco Rich, Tiny Delacruz, Chung Dykes and colleagues, with an educational chasity from [employer]. Physical exam (Primary Care) Vital Signs: Last Vital Signs Temp 97.1 F 04/24/25 14:37 Pulse 83 04/24/25 14:37 BP 122/78 04/24/25 14:37 Pulse Ox 97 04/24/25 14:37 Oxygen Delivery Method Room Air 04/24/25 14:37 BMI result Body Mass Index 28.0 Tobacco/Smoking Status: Tobacco use Status Tobacco use date assessed 04/24/25 04/24/25 14:38 Patient Tobacco Use Status Current everyday Tobacco 04/24/25 14:38 Tobacco use type Cigarette 04/24/25 14:38 e-Cigarette/Vaping Use Never Used 04/24/25 14:38 PHQ-9: PHQ-9 Score PHQ-9: Total score 4 04/24/25 14:38 Thrive Assessment: Date of Thrive Assessment Date Thrive assessed 01/14/25 04/24/25 14:38 Currently or been in a relationship where the following occur: No concerns reported Const General: alert; No acute distress Eyes Conjunctivae: conjunctivae normal Resp Auscultation: clear to auscultation bilaterally Cardio Rate: regular rate Rhythm: regular rhythm GI Inspection: Yes normal to inspection Extrem General: Yes normal to inspection and No edema Coding Level of Care Code Est Pt Level 4 (29917) Complex EM visit Add On G2211 Diagnoses Tobacco abuse Z72.0 Breast cancer screening by mammogram Z12.31 Cervical cancer screening Z12.4 Colon cancer screening Z12.11 GERD (gastroesophageal reflux disease) K21.9 Overweight E66.3 Generalized anxiety disorder F41.1 ADHD (attention deficit hyperactivity disorder), combined type F90.2 Assessment & Plan Assessment & Plan (1) Tobacco abuse: Code(s): Z72.0 - Tobacco use Category: Medical Plan: Patient is strongly advised to stop smoking! (2) Breast cancer screening by mammogram: Code(s): Z12.31 - Encounter for screening mammogram for malignant neoplasm of breast Category: Medical Plan: Patient is reminded about mammogram (3) Cervical cancer screening: Code(s): Z12.4 - Encounter for screening for malignant neoplasm of cervix Category: Medical Plan: Patient is reminded about cervical cancer screening (4) Colon cancer screening: Code(s): Z12.11 - Encounter for screening for malignant neoplasm of colon Category: Medical Plan: Patient is reminded about colonoscopy (5) GERD (gastroesophageal reflux disease): Code(s): K21.9 - Gastro-esophageal reflux disease without esophagitis Category: Medical Plan: Avoid the foods that causes that usually spicy foods, tomato products, juices, coffee, soda and foods that your sensitive to. After eating do not lie down, allow 3-4 hours before in lie down. And keep the head of bed above 30 degrees to avoid the acid from going up. (6) Overweight: Code(s): E66.3 - Overweight Category: Medical Plan: Diet and exercise (7) Generalized anxiety disorder: Comment: Declined referral for counseling Code(s): F41.1 - Generalized anxiety disorder Category: Medical Plan: Patient on ADHD medication sertraline (8) ADHD (attention deficit hyperactivity disorder), combined type: Code(s): F90.2 - Attention-deficit hyperactivity disorder, combined type Category: Medical Plan: Continue with the medication. Plan History of Present Illness The patient is a 44-year-old female presenting for a follow-up visit to address multiple chronic conditions and preventative care measures. The patient has a history of being overweight and has recently experienced a 13-pound weight loss. She has a history of nicotine dependence, smoking two to three cigarettes a day, and has been advised to quit smoking. The patient has been diagnosed with generalized anxiety disorder and is currently on sertraline for management. She also has attention-deficit/hyperactivity disorder (ADHD) and is on medication for this condition. Gastroesophageal reflux disease (GERD) is another condition the patient is managing, for which she is taking omeprazole. The patient has an enlarged thyroid, which is being monitored, and her last blood work in January 2024 showed normal thyroid function. Her blood work also indicated low potassium and vitamin D deficiency, with normal renal function, blood sugar, cholesterol, liver function, B12, and folic acid levels. Preventative care measures discussed include the need for a mammogram, cervical cancer screening, and a colonoscopy. Health Maintenance - Mammogram reminder - Cervical cancer screening reminder - Colonoscopy referral to Dr. Phillips - Smoking cessation advice - Vitamin D supplementation due to deficiency Social History - Smoking: Patient smokes two to three cigarettes a day and has been advised to quit. - Weight management: Patient has lost 13 pounds recently. Review of Systems - General: Reports recent weight loss of 13 pounds. Denies nausea or vomiting. Physical Exam Results - Labs: Normal blood count, low potassium, normal renal function, normal blood sugar, normal cholesterol, normal liver function, normal B12 and folic acid levels, low vitamin D. Plan Patient was informed and verbally consented to the use of an ambient scribe for clinic note documentation during this visit. 1. Overweight The patient has been advised to continue with her current weight management plan, which has resulted in a 13-pound weight loss. She is encouraged to maintain a healthy diet and regular exercise regimen. 2. Nicotine Dependence The patient is strongly advised to quit smoking, as she currently smokes two to three cigarettes a day. Smoking cessation support and resources were discussed. 3. Generalized Anxiety Disorder The patient is currently on sertraline for generalized anxiety disorder and reports that the medication is effective. Continuation of the current medication regimen is recommended. 4. Attention-Deficit/Hyperactivity Disorder (Adhd) The patient is on medication for ADHD and reports that the current dosage is effective. Continuation of the current medication regimen is advised. 5. Gastroesophageal Reflux Disease (Gerd) The patient is managing GERD with omeprazole and is advised to continue this medication. 6. Enlarged Thyroid The patient's enlarged thyroid is being monitored, with previous blood work showing normal thyroid function. 7. Vitamin D Deficiency The patient is advised to take vitamin D supplements to address the deficiency noted in her blood work. 8. Preventative Care: Mammogram The patient is reminded to schedule her overdue mammogram. 9. Preventative Care: Cervical Cancer Screening The patient is reminded to schedule her cervical cancer screening. 10. Preventative Care: Colonoscopy A referral to Dr. Phillips for a colonoscopy has been made, and the patient is advised to schedule the procedure. Discussion Notes During the visit, I discussed with the patient the importance of continuing her weight management plan and the need to quit smoking. We reviewed her current medications for anxiety and ADHD, confirming their effectiveness and continuation. I emphasized the necessity of scheduling her mammogram, cervical cancer screening, and colonoscopy, providing a referral for the latter. Patient Instructions - Continue with current weight management plan and exercise regularly. - Quit smoking and seek support if needed. - Continue taking prescribed medications for anxiety and ADHD. - Schedule and attend mammogram, cervical cancer screening, and colonoscopy appointments. - Take vitamin D supplements as advised. Orders: Orders MM tomosynthesis screening BI Today Z12.31 - Encounter for screening mammogram for malignant neoplasm of breast Medications: Refilled tirzepatide (weight loss) (Zepbound) 7.5 mg (0.5 mL) subcut QWEEK 2 mL 0RF E66.3 - Overweight
--- OUTSIDE RECORDS SUMMARY | 2025-04-24 18:16 | XMS_ITS | Clinical Summary ---
Author Organization [facility] Address [address] [place] [id number] Phone Care Team Providers Care Team Foreman Name Role Phone Rosalva Garcia MD Primary Care Provider [phone] Allergies No known active allergies Medications acetaminophen (TYLENOL) 500 MG tablet Take 500 mg by mouth every 6 (six) hours as needed for pain (specific location in comments). Active levonorgestreL (MIRENA) 20 mcg/24 hours (8 yrs) 52 mg intrauterine device 1 each by Intrauterine route. Active cyclobenzaprine (FLEXERIL) 10 MG tablet Take 1 tablet (10 mg total) by mouth 2 (two) times a day as needed. 20 tablet 3 Active Additional Information Patient not taking.Reported on 11/21/2023 sertraline (ZOLOFT) 25 MG tablet Take 25 mg by mouth daily. Active naproxen (NAPROSYN) 500 MG tablet Take 1 tablet (500 mg total) by mouth 2 (two) times a day as needed (moderate pain). 28 tablet 4 Active Active Problems No known active problems Immunizations Immunization Administration Dates Next Due Influenza Quadrivalent Preservative Free IM 02/2023 Tdap 06/17/2016 Social History Tobacco Use Types Packs/Day Years Used Date Smoking Tobacco: Every Day Smokeless Tobacco: Never Tobacco Cessation:Ready to Q uit: Not Asked; Counseling Given: Not Answered Alcohol Use Standard Drinks/Week Comments Not Currently 0 (1 standard drink = 0.6 oz pur e alcohol) Education Answer Date Recorded Are you interested in more education? Not on donnell e 12/10/2022 Are you concerned about learning? Not on file 12/10/2022 No 12/10/2022 No 12/10/2022 Digital Access Answer Date Recorded No 01/08/2023 No 01/08/2023 Reliable internet access at home? Not on file 01/08/2023 Device with a working camera? Not on file Comments Unknown Sex and Gender Information Value Date Recorded Sex Assigned at Not on file Legal Sex Female 6:08 PM EDT Gender Identity Not on file Sexual Orientation Not on file Last Filed Vital Signs Vital Sign Reading Time Taken Comments Blood Pressure 137/97 11/21/2023 6:10 PM EDT Pulse 78 11/21/2023 6:10 PM EDT Temperature 36.5 C (97.7 F) 11/21/2023 6:10 PM EDT Respiratory Rate 12 11/21/2023 6:10 PM EDT Oxygen Saturation 100% 11/21/2023 6:10 PM EDT Inhaled Oxygen Concentration - - Weight 77.1 kg (170 lb) 09/26/2022 12:01 PM EST Height 162.6 cm (5' 4 ) 03/17/2021 6:25 PM EDT Body Mass Index 29.18 03/17/2021 6:25 PM EDT Plan of Treatment Health Maintenance Due Date Last Done Comments LIPID PANEL 1979 DEPRESSION SCREENING 1991 SMOKING Hx and SMOKELESS TOBACCO SCREENING 11/01/1992 HEPATITIS C SCREENING 11/01/1997 HIV ONE-TIME SCREENING (18-6 5 YEARS) 11/01/1997 PNEUMOCOCCAL VACCINES (0-49 years) (1 of 2 - PCV) 11/01/1998 PAP SMEAR 11/01/2000 SCREENING FOR DIABETES 11/01/2014 MAMMOGRAM 2019 COLOGUARD 11/01/2024 COLONOSCOPY 11/01/2024 COLORECTAL CANCER SCREENING 11/01/2024 FIT TEST 11/01/2024 FOBT 11/01/2024 SIGMOIDOSCOPY 11/01/2024 VIRTUAL COLONOSCOPY 11/01/2024 INFLUENZA VACCINE (#1) 2025 09/20/2022 COVID-19 VACCINE (2024-2 6 season) 2025 06/30/2021, 10/09/2020, 09/18/2020 Adult Td,Tdap Booster 06/17/2026 06/17/2016 HEPATITIS A VACCINES Aged Out No long er eligible based on patient's age to complete this topic HIB VACCINES Aged Out No longer eligi ble based on patient's age to complete this topic MENINGOCOCCAL VACCINES (ACWY) Aged Out No longer eligible based on patient's age to complete this topic MENINGOCOCCAL VACCINES (B) Aged Out N o longer eligible based on patient's age to complete this topic Medical Devices Not on file Insurance [place] [facility] NON NSPG PCP [employer] Member Subscriber Plan / Payer (Ef fective 2021-Present) Name:Cindy Ballard Relation to Subscriber:Self Name:Cindy Ballard Payer ID:[id number] Type:[employer] Address: [address] [employer] DIRECT [facility] NON NSPG PCP [employer] [address] [employer]CARE DIRECT [employer] NON NSPG PCP S[employer] NON NSPG PCP [employer] NON NSPG PCP [employer] Member Subscriber Plan / Payer (Ef fective 2021-Present) Name:Cindy Ballard Relation to Subscriber:Self Name:Irma Ballardzabeth Payer ID:[id number] Type:[employer] Address: [address] [employer] DIRECT [facility] NON NSPG PCP [employer]ARE [facility] NON NSPG PCP [employer] Member Subscriber Plan / Payer (Ef fective 2021-Present) Name:Cindy Ballard Relation to Subscriber:Self Name:Cindy Ballard Payer ID:[id number] Type:HMO Address: [address] [employer] DIRECT [facility] NON NSPG PCP [employer] Member Subscriber Plan / Payer (Ef fective 2021-) Name:Cindy Ballard Relation to Subscriber:Self Name:Cindy Ballard Payer ID:[id number] Type:[employer] Address: [address] [employer] DIRECT [facility] NON NSPG PCP [employer] [facility] Care Teams Team Foreman Relationship Specialty Start Date End Date Rosalva Garcia MD [address] [place] [id number] PCP - General Internal Medicine 09/26/22 Additional Source Comments The information contained in this document represents components of the legal health record. It is not the complete legal health record.[facility]
== END 2025-04-24 15:17 | disposition home or self-care (01) ==
LOC: HO.HMCH 14:34
PROVIDERS: PCP Internal Medicine; Visit Provider Internal Medicine
DX: Z72.0 Tobacco use (principal); Z12.31 Encounter for screening mammogram for malignant neoplasm of breast; Z12.4 Encounter for screening for malignant neoplasm of cervix; Z12.11 Encounter for screening for malignant neoplasm of colon; K21.9 Gastro-esophageal reflux disease without esophagitis; E66.3 Overweight; F41.1 Generalized anxiety disorder; F90.2 Attention-deficit hyperactivity disorder, combined type

== ENCOUNTER → 2025-04-24 14:33 | Outpatient (BNVA) | payer OTHER, SELFPAY | PROVIDERS: PCP Internal Medicine; Visit Provider Internal Medicine | DX: K21.9 Gastro-esophageal reflux disease without esophagitis (principal); E66.3 Overweight; Z68.28 Body mass index [BMI] 28.0-28.9, adult; F41.1 Generalized anxiety disorder; F90.2 Attention-deficit hyperactivity disorder, combined type; E04.9 Nontoxic goiter, unspecified; E55.9 Vitamin D deficiency, unspecified; Z72.0 Tobacco use; Z79.899 Other long term (current) drug therapy; Z13.30 Encounter for screening examination for mental health and behavioral disorders, unspecified | CPT/HCPCS: 99212 ==

== ENCOUNTER 2025-07-28 08:06 | Outpatient (AMB) | payer OTHER, SELFPAY ==
--- OUTSIDE RECORDS SUMMARY | 2025-05-16 09:00 | XMS_ITS ---
Author Organization [facility] Address [address] [place] [address] Care Team Providers Care Credit Associate Name Role Phone Rosalva Garcia MD Primary Care Provider Fransisco Mojica [phone] REASON FOR VISIT Patient presents today for a colon screening Encounters Encounter Location Date Provider Diagnosis [facility] [address] [place] [address] 05/16/2025 Fransisco Phillips Plan Of Treatment No Information Progress Notes * JOSE BLANDONDOB:[birth year] (44 yo F)Acc No.[id number]:05/16/2025 Progress Notes Patient: JOSE MEDINA Provider: Melecio Phillips MD :1980 A ge:44 Y S ex:Female Date:05/16/2025 Address: [id number] Pcp:Rosalva Garcia MD Subjective: * Chief Complaints: * P atient presents today for a colon screening Billing Information: * Procedure Codes: * The named appointment provid er may or may not be the originator of this progress note, and it is not deemed complete until electronically signed by the appointment provider. Sign off status: Pending * Provider: Melecio Phillips MD Date: Generated for Therese atkins/Herman/Shadiaitting on: 09/28/2024 08:39 AM EST
[2025-07-28 08:09] VITALS: BP 118/78; PULSE 80; TEMP 36.8; O2SAT 98; BMI 26.3
--- NOTE | 2025-07-28 08:09 | MHC.OFFWIV ---
Intake Vital Signs 07/28/25 08:09 Height 5 ft 4 in Weight 153 lb BMI 26.3 BP 118/78 Blood Pressure Location Lt brachial Position Sitting Pulse 80 Pulse Source Pulse Oximeter Temp 98.2 F Temp Source Oral Pulse Oximetry (%) 98 Intake Visit Reasons: EP cold congestion Intake Note: pt is here for cold and congestion, not feeling well since monday Patient Tobacco Use Status: Current everyday Tobacco user Allergies No Known Allergies Allergy (Verified 07/28/25 08:13) Do you need a note to return to daycare/school/sports/work: Yes HPI HPI Comments History of Present Illness Details History - The patient is a 44 year old female presenting with symptoms of an upper respiratory infection that began on Monday, including cough, sneezing, congestion, and a sore throat. - She also reports headache, subjective fever, feeling that her chest sounds chunky, and some difficulty breathing. - She has not yet used any medications for these symptoms. - Her visit is prompted by learning today that a close contact tested positive for strep throat. - She also notes recent exposures to strep within her family, as her son, mother, and mother's friend all had it recently. - She denies any history of asthma. - She denies fever, chills, chest pain, SOB, abd pain, n/v/d. Physical Exam General: Cooperative, healthy appearing, comfortable and no acute distress Orientation/consciousness: Patient oriented x3 Limitations: No limitations Head: Normal to inspection Ears: Hearing grossly normal bilaterally, external ears normal and TM's normal bilaterally Nose: Normal external nose present, normal nares present, and no nasal discharge present. Face and sinus: Sinuses nontender to palpation. Mouth: Normal oral and palatal mucosa present and moist mucous membranes noted. Throat: Tonsils normal. Uvula is midline. Posterior oropharynx with erythema and no exudates. Eyes: Appearance normal, both eyes and all related structures Neck: Normal visual inspection, full ROM. No lymphadenopathy noted. Respiratory: Clear to auscultation bilaterally. Normal respiratory effort, able to speak in complete sentences. No respiratory distress, not tachypneic, no tripod positioning and no use of accessory muscles. Cardiovascular: Regular rate and rhythm. Normal S1 and S2 Skin: No rashes or lesions noted Patient was informed and verbally consented to the use of an ambient scribe for clinic note documentation during this visit [facility] Medical History Overweight Anxiety Surgical History No history of previous surgery Family History Paternal Uncle Liver cancer Father Substance abuse Maternal Uncle Myocardial infarct Other Mental health disorder Social History Housing: Apartment Alcohol intake: current Alcohol intake frequency: a few times a week Comment: 1 days weekend 2 beers Patient Tobacco Use Status: Current everyday Tobacco user Tobacco use type: Cigarette Cigarettes Per Day: 5 Years Smoked: e-Cigarette/Vaping Use: Never Used Second Hand Smoke Exposure: Yes service: No Current occupational status: employed Current occupational exposures/hazards: No Cognitive needs: No Hearing needs: No Vision needs: No Review of Systems Const All systems reviewed & are unremarkable except as noted in HPI and below Physical Exam Vital Signs: Last Vital Signs Temp 98.2 F 07/28/25 08:09 Pulse 80 07/28/25 08:09 BP 118/78 07/28/25 08:09 Pulse Ox 98 07/28/25 08:09 BMI result Body Mass Index 26.3 Assessment & Plan Assessment & Plan (1) URI with cough and congestion: Code(s): J06.9 - Acute upper respiratory infection, unspecified Plan Most Acute Upper Respiratory Infection And Suspected Streptococcal Pharyngitis rapid was negative in the office plan - The patient presents with symptoms of an upper respiratory infection and a significant exposure to an individual with confirmed strep throat, raising suspicion for streptococcal pharyngitis. - Diagnostic testing will be performed via nasal swab for a respiratory panel including COVID-19, influenza, RSV, and a strep culture. - Due to the strong suspicion of strep throat and to prevent progression of illness, amoxicillin will be started empirically. - The plan is to call the patient later today with the test results, at which point a decision will be made whether to continue the antibiotic therapy. - Prescriptions for cough, congestion, and a decongestant will be sent to the pharmacy for symptomatic relief. - follow up with PCP Orders: Orders SARS-CoV2/FLU/RSV Today R09.89 - Other specified symptoms and signs involving the circulatory and respiratory systems Medications: New amoxicillin 500 mg PO Q12H 20 tabs 0RF cetirizine-pseudoephedrine 5-120 mg ER 1 tab PO BID 14 tabs 0RF 7 days benzonatate 100 mg PO bid-tid PRN 21 caps 0RF Cough 7 days Coding Level of Care Code Est Pt Level 3 (59027) Diagnoses URI with cough and congestion J06.9
--- OUTSIDE RECORDS SUMMARY | 2025-07-28 08:39 | XMS_ITS | Patient Health Record ---
Author Organization [facility] Address [address] [place] [address] Care Team Providers Care Floors Buffer Name Role Phone Rosalva Garcia MD Primary Care Provider Fransisco Mojica [phone] Reason For Referral No Information Encounters Encounter Location Date Provider Diagnosis [facility] [address] [place] [address] 05/16/2025 Fransisco Phillips Plan Of Treatment No Information Insurance Providers Payer Name Payer Address Payer Phone Subscriber Number Group Number Insured Name Patient Relationship to Insured Coverage Start Date Coverage End Date [facility] [address] [place] [address] [id number] JOSE BLANDON Self - patient is the insured
--- OUTSIDE RECORDS SUMMARY | 2025-07-28 08:39 | XMS_ITS | Clinical Summary ---
Author Organization [facility] Address [address] [place] [address] Phone Care Team Providers Care Extension Associate Name Role Phone Rosalva Garcia MD Primary Care Provider [phone] Allergies No known active allergies Medications acetaminophen [...] Medical Devices Not on file Insurance [place] [facility] NON NSPG PCP [employer] Member Subscriber Plan / Payer (Ef fective 2021-Present) Name:Cindy Ballard Relation to Subscriber:Self Name:Cindy Ballard Payer ID:[id number] Type:[employer] Address: [address] [employer] DIRECT [facility] NON NSPG PCP [employer] [place] [place] [address] CONNE[employer]CARE DIRECT [employer] NON NSPG PCP S[employer] NON NSPG PCP [employer] NON NSPG PCP [employer] Member Subscriber Plan / Payer (Ef fective 2021-Present) Name:Cindy Ballard Relation to Subscriber:Self Name:Irma Ballardzabeth Payer ID:[id number] Type:[employer] Address: [address] [employer] DIRECT [facility] NON NSPG PCP S[employer] CONNE[employer]CARE [facility] NON NSPG PCP [employer] Member Subscriber Plan / Payer (Ef fective 2021-Present) Name:Cindy Ballard Relation to Subscriber:Self Name:Cindy Ballard Payer ID:[id number] Type:HMO Address: [address] [employer] [place] [facility] Address: [facility] [address] [place] [address] [facility] NON NSPG PCP [employer] Member Subscriber Plan / Payer (Ef fective 2021-) Name:Cindy Ballard Relation to Subscriber:Self Name:Cindy Ballard Payer ID:[id number] Type:[employer] Address: [address] [employer] DIRECT [facility] NON NSPG PCP [employer] [facility] Care Teams Extension Associate Relationship Specialty Start Date End Date Rosalva Garcia MD [address] [place] [id number] PCP - General Internal Medicine 09/26/22 Additional Source Comments The information contained in this document represents components of the legal health record. It is not the complete legal health record.[facility]
== END 2025-07-28 08:43 | disposition home or self-care (01) ==
PROVIDERS: Visit Provider Physician Assistant Medical
DX: J06.9 Acute upper respiratory infection, unspecified (principal)

== ENCOUNTER → 2025-07-28 08:06 | Outpatient (BNVA) | payer OTHER, SELFPAY | PROVIDERS: Visit Provider Physician Assistant Medical | DX: J06.9 Acute upper respiratory infection, unspecified (principal); F17.210 Nicotine dependence, cigarettes, uncomplicated | CPT/HCPCS: 99212 ==

== ENCOUNTER 2025-07-28 10:24 | Outpatient (REF) | payer OTHER, SELFPAY ==
[2025-07-28 11:21] LABS: Resp Syncy Virus RNA Qual PCR NEGATIVE (Negative); SARS COV2 PCR INHOUSE NEGATIVE (Negative)
== END 2025-07-28 10:25 | disposition home or self-care (01) ==
LOC: HO.LNP 10:24
PROVIDERS: Visit Provider Physician Assistant Medical
DX: R09.89 Other specified symptoms and signs involving the circulatory and respiratory systems (principal)
CPT/HCPCS: 87637

== ENCOUNTER 2025-08-02 10:17 | Outpatient (REF) | payer OTHER, SELFPAY ==
--- OUTSIDE RECORDS SUMMARY | 2025-05-16 09:00 | XMS_ITS ---
Author Organization [facility] Address [address] [place] [address] Care Team Providers Care Machine Operator Picker Name Role Phone Rosalva Garcia MD Primary Care Provider Fransisco Mojica [phone] REASON FOR VISIT Patient presents today for a colon screening Encounters Encounter Location Date Provider Diagnosis [facility] [address] [place] [address] 05/16/2025 Fransisco Phillips Plan Of Treatment No Information Progress Notes * JOSE BLANDONDOB:[birth year] (44 yo F)Acc No.[id number]:05/16/2025 Progress Notes Patient: JOSE MEDINA Provider: Melecio Phillips MD :1980 A ge:44 Y S ex:Female Date:05/16/2025 Address: [address] [id number] Pcp:Rosalva Garcia MD Subjective: * Chief Complaints: [...] MD Date: Generated for Therese atkins/Herman/Shadiaitting on: 10/03/2024 10:20 AM EST
--- OUTSIDE RECORDS SUMMARY | 2025-08-02 10:20 | XMS_ITS | Patient Health Record ---
Author Organization [facility] Address [address] [place] [address] Care Team Providers Care Railroad Car Inspector Name Role Phone Rosalva Garcia MD Primary Care Provider Fransisco Mojica [phone] Reason For Referral No Information Encounters Encounter Location Date Provider Diagnosis [facility] [address] [place] [address] 05/16/2025 Fransisco Phillips Plan Of Treatment No Information Insurance Providers Payer Name Payer Address Payer Phone Subscriber Number Group Number Insured Name Patient Relationship to Insured Coverage Start Date Coverage End Date [facility] [address] [place] [address] [id number] JOSE BLANDON Self - patient is the insured
--- OUTSIDE RECORDS SUMMARY | 2025-08-02 10:20 | XMS_ITS | Clinical Summary ---
Author Organization [facility] Address [address] [place] [address] Phone Care Team Providers Care Histology Manager Name Role Phone Rosalva Garcia MD Primary Care Provider [phone] Allergies No known active allergies Medications acetaminophen [...] Medical Devices Not on file Insurance [place], [place] [facility] NON NSPG PCP [employer] Member Subscriber Plan / Payer (Ef fective 2021-Present) Name:Cindy Ballard Relation to Subscriber:Self Name:Cindy Ballard Payer ID:[id number] Type:[employer] Address: [address] [employer]ARE DIRECT [facility] NON NSPG PCP [employer] [place] [address] [place] [address] [employer]ARE DIRECT [employer] NON NSPG PCP S[employer] NON NSPG PCP [employer] NON NSPG PCP [employer] Member Subscriber Plan / Payer (Ef fective 2021-Present) Name:Cindy Ballard Relation to Subscriber:Self Name:Irma Ballardzabeth Payer ID:[id number] Type:[employer] Address: [address] [employer] DIRECT [facility] NON NSPG PCP [employer]ARE [facility] NON NSPG PCP [employer] Member Subscriber Plan / Payer (Ef fective 2021-Present) Name:Cindy Ballard Relation to Subscriber:Self Name:Cindy Ballard Payer ID:[id number] Type:HMO Address: [address] [employer] DIRECT [facility] Address: [facility] [address] [place] [address] [facility] NON NSPG PCP [employer] Member Subscriber Plan / Payer (Ef fective 2021-) Name:Cindy Ballard Relation to Subscriber:Self Name:Cindy Ballard Payer ID:[id number] Type:[employer] Address: [address] [employer] DIRECT [facility] NON NSPG PCP [employer] [facility] Care Teams Histology Manager Relationship Specialty Start Date End Date Rosalva Garcia MD [address] [place] [phone] PCP - General Internal Medicine 09/26/22 Additional Source Comments The information contained in this document represents components of the legal health record. It is not the complete legal health record.[facility]
[2025-08-02 10:34] LABS: MANUAL DIFF FLAG NO
[2025-08-02 10:58] LABS: Hematocrit 42.0 % (37.0-47.0); Hemoglobin 13.9 g/dl (12.0-16.0); Imm Gran Abs Auto 0.01 X10*3/uL (0.00-0.03); Imm Gran Pct Auto 0.1 % (0.0-0.4); Lymphocytes Absolute Auto 2.4 X10*3/uL (1.2-4.9); Mean Corpuscular HGB Conc 33.1 g/dl (31.0-35.0); Mean Corpuscular Hemoglobin 31.4 pg (27.0-33.0); Mean Corpuscular Volume 94.8 fL (80.0-98.0); NRBC Abs Auto 0.000 X10*3/uL (0.0-0.012); NRBC Pct Auto 0.0 /100WBC (0.0-0.2); Platelet Count 299 X10*3/uL (160-400); Red Blood Count 4.43 X10*6/uL (4.20-5.50); White Blood Count 7.2 X10*3/uL (4.8-10.8)
[2025-08-02 11:20] LABS: Appearance Urine Cloudy; Glucose Urine UA Negative (Negative); PH 5.0 (5.0-9.0); Specific Gravity - Urine 1.020 (1.005-1.025); UMIC TRIGGER UACC YES
[2025-08-02 11:24] LABS: UACC Culture Trigger YES
[2025-08-02 11:29] LABS: Alanine Aminotransferase 31 U/L (0-31); Albumin Level 4.5 g/dL (3.5-5.0); Alkaline Phosphatase 79 U/L (39-117); Anion Gap 13 (12-20); Aspartate Amino Transferase 25 U/L (5-31); Blood Urea Nitrogen 10 mg/dL (9-16); Calcium 9.8 mg/dL (8.4-10.2); Carbon Dioxide 25 mmol/L (22-29); Chloride 107 mmol/L (96-108); Cholesterol 193 mg/dL (<200); Estimated Glomerular Filt Rate > 60; HDL Cholesterol 50 mg/dL (>40); Potassium 4.4 mmol/L (3.3-5.1); Sodium 141 mmol/L (135-145); Total Protein 7.4 g/dL (6.5-8.0); Triglycerides 100 mg/dL (<150)
[2025-08-02 11:48] LABS: Free T4 (Free Thyroxine) 1.03 ng/dL (0.71-1.85); Thyroid Stimulating Hormone 0.93 uIU/mL (0.32-4.0)
[2025-08-02 11:54] LABS: Folate 6.0 ng/mL (> or = 4.0); Vitamin B12 231 pg/mL (200-900)
== END 2025-08-02 10:18 | disposition home or self-care (01) ==
LOC: HO.LAB 10:17
PROVIDERS: PCP Internal Medicine; Visit Provider Internal Medicine
DX: K21.9 Gastro-esophageal reflux disease without esophagitis (principal); E78.00 Pure hypercholesterolemia, unspecified; R30.0 Dysuria
CPT/HCPCS: 36415; 80053; 80061; 81001; 81003; 82306; 82607; 82746; 84439; 84443; 85025; 87086

== ENCOUNTER 2025-08-05 15:42 | Outpatient (AMB) | payer OTHER, SELFPAY ==
--- OUTSIDE RECORDS SUMMARY | 2025-05-16 09:00 | XMS_ITS ---
Author Organization [facility] Address [address] [place] [address] Care Team Providers Care Teacher Of Family And Consumer Science Name Role Phone Rosalva Garcia MD Primary Care Provider Fransisco Mojica [phone] REASON FOR VISIT Patient presents today for a colon screening Encounters Encounter Location Date Provider Diagnosis [facility] [address] [place] [address] 05/16/2025 Fransisco Phillips Plan Of Treatment No Information Progress Notes * JOSE BLANDONDOB:[birth year] (44 yo F)Acc No.[id number]:05/16/2025 Progress Notes Patient: JOSE MEDINA Provider: Melecio Phillips MD :1980 A ge:44 Y S ex:Female Date:05/16/2025 Address: [id number] Pcp:Rosalva Garcia MD Subjective: * Chief Complaints: [...] MD Date: Generated for Therese atkins/Herman/Shadiaitting on: 10/06/2024 04:43 PM EST
--- NOTE | 2025-08-05 16:08 | A.OFFPC_ITS ---
Vital Signs 08/05/25 16:14 Height 5 ft 4 in Weight 152 lb 8 oz BMI 26.2 BP 116/68 Blood Pressure Location Lt brachial Position Sitting Respiration 18 Pulse 78 Pulse Source Pulse Oximeter Temp Source Temporal Artery Scan Pulse Oximetry (%) 99 Oxygen Delivery Method Room Air Intake Visit Reasons: overweight, ADHD Boring Machine Operator Horizontal Required: No Allergies No Known Allergies Allergy (Verified 08/05/25 16:08) Medication List - Last Reconciled 08/05/25 by Rosalva Garcia MD amoxicillin 500 mg PO Q12H benzonatate 100 mg PO bid-tid PRN 7 days cetirizine-pseudoephedrine 5-120 mg ER 1 tab PO BID 7 days cholecalciferol (vitamin D3) 50 mcg PO DAILY 90 days cyanocobalamin (vitamin B-12) 1,000 mcg PO DAILY dextroamphetamine-amphetamine 10 mg (Adderall) 10 mg PO BID dextroamphetamine-amphetamine 5 mg (Adderall) 5 mg orally take daily 4 pm; Partial Fill upon patient request. fexofenadine (Senait Allergy) 180 mg PO DAILY nicotine 1 patch transdermal Q24H omeprazole 20 mg PO DAILY sertraline (Zoloft) 25 mg PO DAILY tirzepatide (weight loss) (Zepbound) 7.5 mg (0.5 mL) subcut QWEEK Tobacco use date assessed: 08/05/25 Dental Screening Dental Screen Date: 08/05/25 Did you have a dental visit in the last 12 months?: Yes Did you have a dental problem in the last 6 months where you did not have access to dental care?: No Was dental information given to patient?: Patient has dentist HPI HPI Comments History of Present Illness Details History of Present Illness The patient is a 44-year-old female presenting for a follow-up visit, last seen in April 2025. Her medical history includes generalized anxiety disorder, ADHD, and GERD. She is a smoker. On July 28, the patient visited an urgent care center for an upper respiratory tract infection and was prescribed amoxicillin and allergy medication. Testing for viral infections was negative at that time. Blood work from August 02 showed a normal blood count without anemia, good electrolytes, normal renal function, normal blood sugar, stable liver function, and good cholesterol levels. However, lab results revealed very low vitamin D and low vitamin B12 levels. Health Maintenance The patient was reminded that she is due for a mammogram and colonoscopy. The importance of diet, exercise, and smoking cessation was discussed. Social History - Tobacco Use: The patient is a smoker a nd was advised to stop. - Exercise: Diet and exercise were discu ssed. Results - Labs (August 02): Blood work showed a normal blood count with no anemia, good electrolytes, normal renal function, normal blood sugar, normal liver function, and good cholesterol. - Labs (August 02): Vitamin D level wa s very low and vitamin B12 level was low. - Tests (July 28): Testing was negat marilu for any viral infections. [facility] Medical History Overweight Anxiety Surgical History No history of previous surgery Family History Paternal Uncle Liver cancer Father Substance abuse Maternal Uncle Myocardial infarct Other Mental health disorder Social History Housing: Apartment Alcohol intake: current Alcohol intake frequency: a few times a week Comment: 1 days weekend 2 beers Patient Tobacco Use Status: Current everyday Tobacco user Tobacco use type: Cigarette Cigarettes Per Day: 5 Years Smoked: e-Cigarette/Vaping Use: Never Used Second Hand Smoke Exposure: Yes service: No Current occupational status: employed Current occupational exposures/hazards: No Cognitive needs: No Hearing needs: No Vision needs: No Questionnaire Thrive Questionnaire Date Thrive assessed: 08/05/25 I am a: Patient What is your living situation today?: I have a steady place to live Within the past 12 months, did the food you bought not last and you didn't have the money to get more?: Sometimes True Within the past 12 months, did you worry whether your food would run out before you got money to buy more?: Sometimes True Do you have trouble paying for medicines?: No Do you have trouble getting transportation to medical appointments?: Yes Do you have trouble paying your heating and electricity bill?: Yes Do you have trouble taking care of your child, family member or friend?: No Do you have trouble with day-to-day activities such as bathing, preparing meals, shopping, managing finances, etc.?: No Are you currently unemployed and looking for a job?: No Are you interested in more education?: Yes Currently or been in a relationship where the following occur: No concerns reported THRIVE Score: 4 GIL-7 AMB Questionnaire GIL-7 Date GIL - 7 assessed: 01/14/25 Source: Developed by Drs. Fransisco Rich, Tiny Delacruz, Chung Dykes and colleagues, with an educational chasity from [employer]. Review of Systems Narrative Review of Systems - Respiratory: Reports a recent upper respiratory tract infection. - Infectious Disease: Denies viral infections on recent testing. - Hematologic: Denies anemia per recent labs. Physical exam (Primary Care) Vital Signs: Last Vital Signs Pulse 78 08/05/25 16:14 Resp 18 08/05/25 16:14 BP 116/68 08/05/25 16:14 Pulse Ox 99 08/05/25 16:14 Oxygen Delivery Method Room Air 08/05/25 16:14 BMI result Body Mass Index 26.2 Tobacco/Smoking Status: Tobacco use Status Tobacco use date assessed 08/05/25 08/05/25 16:10 Patient Tobacco Use Status Current everyday Tobacco 08/05/25 16:10 Tobacco use type Cigarette 08/05/25 16:10 e-Cigarette/Vaping Use Never Used 08/05/25 16:10 Thrive Assessment: Date of Thrive Assessment Date Thrive assessed 08/05/25 08/05/25 16:18 Currently or been in a relationship where the following occur: No concerns reported Narrative Physical Exam - Vital Signs: Blood pressure is under control. Const General: alert; No acute distress Eyes Conjunctivae: conjunctivae normal Resp Auscultation: clear to auscultation bilaterally Cardio Rate: regular rate Rhythm: regular rhythm GI Inspection: Yes normal to inspection Extrem General: Yes normal to inspection and No edema Office Procedures Flu Questionnaire Does the patient have a severe egg allergy?: No Does the patient have severe life threatening allergies?: No Does the patient have a fever or illness today?: No Has the patient ever had Guillain-Cresson Syndrome?: No Has the patient ever had any past reaction to a flu shot?: No Immunizations Fluarix [id number] (PF) 45 mcg (15 mcg x 3)/0.5 mL IM syringe Performing Provider: Rosalva Garcia MD Performing Location: [facility] Administered by: Deidra Ramos LPN on 08/05/25 16:36 Dose Route Admin Location Dispensed Lot Number Expiration Date [facility] Canceling And Cutting Control Clerk 0.5 mL IM Left Deltoid 0.5 mL [id number] 02/10/26 52903-552-14 [employer] VIS Given Date VIS Provided VIS Publication Date 08/05/25 Single Vaccine 24 Eligibility Eligibility Date Funding Source Not [facility] Eligible 08/05/25 Private Coding Level of Care Code Est Pt Level 4 (92220) Add On Problem Visit Only Diagnoses Generalized anxiety disorder F41.1 ADHD (attention deficit hyperactivity disorder), combined type F90.2 Obesity (BMI 30.0-34.9) E66.811 GERD (gastroesophageal reflux disease) K21.9 Colon cancer screening Z12.11 Breast cancer screening by mammogram Z12.31 Vitamin D deficiency E55.9 Low vitamin B12 level R79.89 Tobacco abuse Z72.0 UTI (urinary tract infection) N39.0 Assessment & Plan Assessment & Plan (1) Generalized anxiety disorder: Comment: Declined referral for counseling Code(s): F41.1 - Generalized anxiety disorder Category: Medical Plan: Continue with sertraline (2) ADHD (attention deficit hyperactivity disorder), combined type: Code(s): F90.2 - Attention-deficit hyperactivity disorder, combined type Category: Medical Plan: Continue with Adderall. Blood pressure under control (3) Obesity (BMI 30.0-34.9): Code(s): E66.811 - Obesity, class 1 Category: Medical Plan: Diet and exercise (4) GERD (gastroesophageal reflux disease): Code(s): K21.9 - Gastro-esophageal reflux disease without esophagitis Category: Medical Plan: Avoid the foods that causes that usually spicy foods, tomato products, juices, coffee, soda and foods that your sensitive to. After eating do not lie down, allow 3-4 hours before in lie down. And keep the head of bed above 30 degrees to avoid the acid from going up. (5) Colon cancer screening: Code(s): Z12.11 - Encounter for screening for malignant neoplasm of colon Category: Medical Plan: Patient is reminded about colonoscopy (6) Breast cancer screening by mammogram: Code(s): Z12.31 - Encounter for screening mammogram for malignant neoplasm of breast Category: Medical Plan: Patient is reminded about mammogram (7) Vitamin D deficiency: Code(s): E55.9 - Vitamin D deficiency, unspecified Category: Medical Plan: Vitamin-D 7457-6651 units once a day (8) Low vitamin B12 level: Code(s): R79.89 - Other specified abnormal findings of blood chemistry Category: Medical Plan: Vitamin B12 1000 mcg once a day (9) Tobacco abuse: Code(s): Z72.0 - Tobacco use Category: Medical Plan: Patient is advised to stop patient point (10) UTI (urinary tract infection): Code(s): N39.0 - Urinary tract infection, site not specified Category: Medical Plan Plan Patient was informed and verbally consented to the use of an ambient scribe for clinic note documentation during this visit. 1. Generalized Anxiety Disorder Continue with sertraline. 2. Attention-Deficit/Hyperactivity Disorder Continue with Adderall. 3. Gastroesophageal Reflux Disease A reflux plan was discussed. 4. Vitamin D Deficiency Start vitamin D supplementation at 1000 to 2000 units once a day. 5. Vitamin B12 Deficiency Start vitamin B12 supplementation at 1000 mcg once a day. Discussion Notes I reviewed the patient's recent history, including an urgent care visit for an upper respiratory infection on July 28, for which she received amoxicillin. We discussed her blood work from August 02, noting that while most results were normal, she has very low vitamin D and low vitamin B12. We discussed the plan to continue her current medications, sertraline and Adderall, as her blood pressure is well-controlled. I have recommended she start vitamin D 2200-6244 units daily and vitamin B12 1000 mcg daily. I reminded her that she is due for a mammogram and a colonoscopy for routine screening. Additionally, we discussed her reflux plan, the importance of diet and exercise, and I advised her to stop smoking. Patient Instructions - Continue taking sertraline as prescribed for anxiety. - Continue taking Adderall as prescribed for ADHD. - Take vitamin D, 1000 to 2000 units, once a day for your low vitamin D level. - Take vitamin B12, 1000 mcg, once a day for your low vitamin B12 level. - Please schedule your mammogram as you are due for screening. - Please schedule your colonoscopy as you are due for screening. - We strongly advise you to stop smoking. - Continue with your diet and exercise plan. - Follow your plan for acid reflux. Orders: Orders Influenza [id number] Immunization Today Z23 - Encounter for immunization Referrals Gastroenterology Referral Z12.11 - Encounter for screening for malignant neoplasm of colon Medications: New cholecalciferol (vitamin D3) 50 mcg PO DAILY 90 caps 3RF 90 days E55.9 - Vitamin D deficiency, unspecified cyanocobalamin (vitamin B-12) 1,000 mcg PO DAILY 30 caps 3RF E53.8 - Deficiency of other specified B group vitamins nitrofurantoin monohyd/m-cryst 100 mg (Macrobid) must administer with a meal/food 100 mg PO Q12H 10 caps 0RF 5 days N39.0 - Urinary tract infection, site not specified Refilled nicotine 1 patch transdermal Q24H 28 ea 1RF Z72.0 - Tobacco use
[2025-08-05 16:14] VITALS: BP 116/68; PULSE 78; RESP 18; O2SAT 99; BMI 26.2
--- OUTSIDE RECORDS SUMMARY | 2025-08-05 16:44 | XMS_ITS | Patient Health Record ---
Author Organization [facility] Address [address] [place] [address] Care Team Providers Care Student Affairs Vice President Name Role Phone Rosalva Garcia MD Primary Care Provider Fransisco Mojica [phone] Reason For Referral No Information Encounters Encounter Location Date Provider Diagnosis [facility] [address] [place] [address] 05/16/2025 Fransisco Phillips Plan Of Treatment No Information Insurance Providers Payer Name Payer Address Payer Phone Subscriber Number Group Number Insured Name Patient Relationship to Insured Coverage Start Date Coverage End Date [facility] [address] [place] [address] [id number] JOSE BLANDON Self - patient is the insured
--- OUTSIDE RECORDS SUMMARY | 2025-08-05 16:44 | XMS_ITS | Clinical Summary ---
Author Organization [facility] Address [address] [place] [id number] Phone Care Team Providers Care Barking Machine Feeder Name Role Phone Rosalva Garcia MD Primary Care Provider [phone] Allergies No known active allergies Medications acetaminophen [...] Medical Devices Not on file Insurance [place], [place] [facility] NON [place] PCP [employer] Member Subscriber Plan / Payer (Ef fective 2021-Present) Name:Cindy Ballard Relation to Subscriber:Self Name:Cindy Ballard Payer ID:[id number] Type:Thirsty Address: [address] [employer] DIRECT [facility] NON [place]SP[place] PCP [employer] [address] [place] [address] [employer] DIRECT [employer] NON [place] PCP S[employer] NON [place] PCP [employer] NON [place] PCP [employer] Member Subscriber Plan / Payer (Ef fective 2021-Present) Name:Cindy Ballard Relation to Subscriber:Self Name:Irma Ballardzabeth Payer ID:[id number] Type:BeakerO Address: [address] [employer] DIRECT [facility] NON [place] PCP [employer] [facility] NON [place] PCP [employer] Member Subscriber Plan / Payer (Ef fective 2021-Present) Name:Cindy Ballard Relation to Subscriber:Self Name:Cindy Ballard Payer ID:[id number] Type:HMO Address: [address] [employer] DIRECT [facility] Address: [facility] [address] [place] [address] [facility] NON [place] PCP [employer] Member Subscriber Plan / Payer (Ef fective 2021-) Name:Cindy Ballard Relation to Subscriber:Self Name:Cindy Ballard Payer ID:[id number] Type:Thirsty Address: [address] [employer] DIRECT [facility] NON [place] PCP [employer] [facility] [facility] Care Teams Barking Machine Feeder Relationship Specialty Start Date End Date Rosalva Garcia MD [address] [place] [phone] PCP - General Internal Medicine 09/26/22 Additional Source Comments The information contained in this document represents components of the legal health record. It is not the complete legal health record.[facility]
== END 2025-08-05 16:38 | disposition home or self-care (01) ==
LOC: HO.HMCH 15:43
PROVIDERS: PCP Internal Medicine; Visit Provider Internal Medicine
DX: F41.1 Generalized anxiety disorder (principal); F90.2 Attention-deficit hyperactivity disorder, combined type; E66.811 Obesity, class 1; Z68.26 Body mass index [BMI] 26.0-26.9, adult; K21.9 Gastro-esophageal reflux disease without esophagitis; Z12.11 Encounter for screening for malignant neoplasm of colon; Z12.31 Encounter for screening mammogram for malignant neoplasm of breast; E55.9 Vitamin D deficiency, unspecified; R79.89 Other specified abnormal findings of blood chemistry; Z72.0 Tobacco use; N39.0 Urinary tract infection, site not specified; Z23 Encounter for immunization

== ENCOUNTER → 2025-08-05 15:42 | Outpatient (BNVA) | payer OTHER, SELFPAY | PROVIDERS: PCP Internal Medicine; Visit Provider Internal Medicine | DX: F41.1 Generalized anxiety disorder (principal); F90.2 Attention-deficit hyperactivity disorder, combined type; K21.9 Gastro-esophageal reflux disease without esophagitis; E66.811 Obesity, class 1; N39.0 Urinary tract infection, site not specified; E55.9 Vitamin D deficiency, unspecified; R79.89 Other specified abnormal findings of blood chemistry; Z72.0 Tobacco use; Z23 Encounter for immunization | CPT/HCPCS: 90471; 90656; 99212 ==